=== PATIENT | female | born 1985 | race Two or more races ===

== ENCOUNTER 2017-09-21 15:25 | Emergency (ER) | payer OTHER ==
[~2017-09-21] VITALS: Ht 182.9 cm; Wt 104.3 kg
[2017-09-21] MEDS ORDERED: DIAZEPAM 10 MG TABLET PO STA (16:00)
[2017-09-21] MEDS ORDERED: KETOROLAC TROMETHAMINE INJ 60 MG/2 ML VIAL IM ONE (16:00)
--- NOTE | 2017-09-21 16:10 | NUR ---
URINE COLLECTED AND SENT TO LAB
[2017-09-21] MEDS ORDERED: KETOROLAC TROMETHAMINE INJ 30 MG/ML VIAL ONE (16:31)
[2017-09-21] MEDS ORDERED: DIAZEPAM 10 MG TABLET ONE (16:31)
--- NOTE | 2017-09-21 17:08 | NUR ---
PT STATES THAT PAIN IS NOW TOLERABLE AT 10
--- NOTE | 2017-09-21 17:09 | NUR ---
PT. VERBALIZED UNDERSTANDING OF AFTERCARE INSTRUCTIONS.Patient discharged to home in stable condition. Written and verbal after care instructions given. Patient verbalizes understanding of instruction.
[2017-09-21 17:11] VITALS: BP 134/77
== END 2017-09-21 17:12 | disposition home or self-care (01) ==
LOC: ER 15:26
DX: M54.6 Pain in thoracic spine (principal); E11.9 Type 2 diabetes mellitus without complications; Z88.0 Allergy status to penicillin; Z79.84 Long term (current) use of oral hypoglycemic drugs
CPT/HCPCS: 71010; 84703; 96372; 99283; A4606; J1885; Z7610

== ENCOUNTER 2019-01-04 19:59 | Emergency (ER) | payer OTHER ==
[~2019-01-04] VITALS: Ht 180.3 cm; Wt 136.1 kg
[~2019-01-04 19:59] MED LIST: GLYB2.5T4 PO; METF-440 PO
[2019-01-04 20:15] VITALS: BP 147/97
[2019-01-04] MEDS ORDERED: IBUPROFEN 600 MG TABLET PO ONE ×2 (21:00)
== END 2019-01-04 21:20 | disposition home or self-care (01) ==
LOC: ER 20:02
DX: M77.9 Enthesopathy, unspecified (principal); E11.9 Type 2 diabetes mellitus without complications; Z88.0 Allergy status to penicillin
CPT/HCPCS: 99282; A4606

== ENCOUNTER 2019-06-24 07:42 | Emergency (ER) | payer OTHER ==
[~2019-06-24] VITALS: Ht 175.3 cm; Wt 154.2 kg
--- NOTE | 2019-06-24 07:50 | NUR ---
PT BIB SELF C/O PALPITAIONS STARTED 3AM THIS MORNING, -CP, PT IS AAOX4, NOT IN RESPIRATORY DISTRESS, HOOKED TO MONITOR, KEPT RESTED AND COMFORTABLE, WILL CONTINUE TO MONITOR.
--- NOTE | 2019-06-24 07:55 | NUR ---
SEEN AND EXAMINED BY .
[2019-06-24] MEDS ORDERED: IV NS 0.9% 1,000 ML BAG IV ONE (08:00)
[2019-06-24] MEDS ORDERED: DILTIAZEM HCL 25 MG IV IV ONE (08:00)
--- NOTE | 2019-06-24 08:00 | NUR ---
IV LINE ESTABLISHED, BLOOD DRAWNED AND SENT TO LAB.
[2019-06-24] MEDS ORDERED: DILTIAZEM HCL 25 MG IV ONE (08:01)
[2019-06-24 08:11] LABS: BASOPHILS # (AUTO) 0.1 /CMM (0.0-0.2); BASOPHILS % (AUTO) 0.9 % (0.0-2.0); EOSINOPHILS % (AUTO) 1.6 % (0.0-6.0); HEMATOCRIT 48 % (33-45); HEMOGLOBIN 16.4 g/dL (11.5-14.8); LYMPHOCYTES # (AUTO) 2.2 /CMM (0.8-4.8); LYMPHOCYTES % (AUTO) 21.3 % (20.0-44.0); MEAN CORPUSCULAR HGB CONC 34 g/dl (31.0-36.0); MEAN CORPUSCULAR VOLUME 95 fL (82-100); MONOCYTES % (AUTO) 9.3 % (2.0-12.0); NEUTROPHILS % (AUTO) 66.9 % (43.0-81.0); PLATELET COUNT (AUTO) 236 /CMM (150-450); RED BLOOD CELL COUNT(AUTO) 5.06 MIL/uL (4.0-5.2); WHITE BLOOD COUNT (AUTO) 10.4 K/uL (4.3-11.0)
[2019-06-24] MEDS ORDERED: LIDOCAINE 1%-EPI 1:100,000 20 ML VIAL ONE (08:23)
[2019-06-24 08:25] LABS: CARBON DIOXIDE 25 mmol/L (21-32); CHLORIDE 95 mmol/L (98-107); POTASSIUM 4.4 mmol/L (3.5-5.1); SODIUM SERUM 132 mmol/L (136-145)
[2019-06-24 08:26] LABS: CALCIUM, SERUM 8.9 mg/dL (8.5-10.1); CREATININE 0.9 mg/dL (0.6-1.3); UREA NITROGEN, BLOOD 12 mg/dL (7-18)
[2019-06-24 08:27] LABS: GLUCOSE 509 mg/dL (74-106)
[2019-06-24] MEDS ORDERED: LIDOCAINE 1%-EPI 1:100,000 20 ML VIAL TP ONE (08:30)
[2019-06-24] MEDS ORDERED: INSULIN ASPART/LISPRO 100 UNIT/ML CARTRIDGE SQ STA (08:53)
[2019-06-24 10:40] VITALS: BP 118/72
--- NOTE | 2019-06-24 10:40 | NUR ---
IV removed. Catheter intact and site benign. Pressure and 4x4 applied to site. No bleeding noted. Patient discharged to home in stable condition. Written and verbal after care instructions given. Patient verbalizes understanding of instruction.
== END 2019-06-24 10:41 | disposition home or self-care (01) ==
LOC: ER 07:42
DX: I48.91 Unspecified atrial fibrillation (principal); E11.65 Type 2 diabetes mellitus with hyperglycemia; L72.3 Sebaceous cyst; F17.200 Nicotine dependence, unspecified, uncomplicated; Z88.0 Allergy status to penicillin; Z79.84 Long term (current) use of oral hypoglycemic drugs
CPT/HCPCS: 10060; 36415; 71045; 80048; 82962; 84484; 84702; 85025; 93005; 96361; 96372; 96374; 99284; A6403; A6407 ×2; J1815; J3490 ×2; J7030

== ENCOUNTER 2019-06-29 16:27 | Emergency (ER) | payer OTHER ==
[~2019-06-29] VITALS: Ht 175.3 cm; Wt 138.3 kg
[2019-06-29 16:31] VITALS: BP 187/113
== END 2019-06-29 17:16 | disposition home or self-care (01) ==
LOC: ER 16:28
DX: L02.212 Cutaneous abscess of back [any part, except buttock and flank] (principal); E11.9 Type 2 diabetes mellitus without complications; F10.10 Alcohol abuse, uncomplicated; F17.200 Nicotine dependence, unspecified, uncomplicated; Y90.9 Presence of alcohol in blood, level not specified; Z88.0 Allergy status to penicillin; Z48.01 Encounter for change or removal of surgical wound dressing

== ENCOUNTER 2019-10-04 03:38 | Emergency (ER) | payer OTHER ==
[~2019-10-04] VITALS: Ht 177.8 cm; Wt 140.6 kg
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
[2019-10-04] MEDS ORDERED: CYCLOBENZAPRINE 10 MG TABLET PO ONE (05:00)
[2019-10-04] MEDS ORDERED: KETOROLAC TROMETHAMINE INJ 60 MG/2 ML VIAL IM ONE (05:00)
[2019-10-04] MEDS ORDERED: KETOROLAC TROMETHAMINE INJ 30 MG/ML VIAL ONE (05:12)
[2019-10-04] MEDS ORDERED: CYCLOBENZAPRINE 10 MG TABLET ONE (05:13)
--- NOTE | 2019-10-04 05:20 | NUR ---
Patient discharged to home in stable condition. Written and verbal after care instructions given. Patient verbalizes understanding of instruction and RX. PT ambulatory with a steady gait.
[2019-10-04 05:21] VITALS: BP 146/86
== END 2019-10-04 05:22 | disposition home or self-care (01) ==
LOC: ER 03:40
DX: M79.18 Myalgia, other site (principal); M54.9 Dorsalgia, unspecified; E11.9 Type 2 diabetes mellitus without complications; F10.10 Alcohol abuse, uncomplicated; F17.200 Nicotine dependence, unspecified, uncomplicated; Y90.9 Presence of alcohol in blood, level not specified; Z79.899 Other long term (current) drug therapy; Z88.0 Allergy status to penicillin
CPT/HCPCS: 96372; 99283; J1885

== ENCOUNTER 2020-05-09 06:27 | Inpatient (IN) | payer MEDICAID, OTHER ==
[~2020-05-09] VITALS: Ht 177.8 cm; Wt 136.1 kg
[2020-05-09] VITALS (22 sets, daily range): BP systolic 123–177; BP diastolic 53–111
[2020-05-09] MEDS ORDERED: IV NS 0.9% 1,000 ML BAG IV ONE (07:00)
[2020-05-09] MEDS ORDERED: ONDANSETRON HCL/PF 4 MG/2 ML VIAL IVP ONE (07:00)
[2020-05-09] MEDS ORDERED: KETOROLAC TROMETHAMINE INJ 30 MG/ML VIAL IV ONE (07:00)
[2020-05-09] MEDS ORDERED: ONDANSETRON HCL/PF 4 MG/2 ML VIAL ONE ×2 (07:03→07:33)
[2020-05-09] MEDS ORDERED: KETOROLAC TROMETHAMINE 15 MG/ML VIAL ONE (07:03)
--- NOTE | 2020-05-09 07:05 | NUR ---
URINE COLLECTED AND SENT TO LAB.
--- NOTE | 2020-05-09 07:07 | NUR ---
PATIENT CAME TO ER BED 3 C/O LEFT-SIDED CHEST PAIN SINCE 0 OF YESTERDAY. SHE STATES," IT COMES FROM THE MIDDLE OF MY ABDOMEN AND UP TO THE MIDDLE OF MY CHEST". PATIENT ALSO STATES THAT SHE IS DIABETIC AND SHE TOOK IBUPROFEN OF 2 TABLETS OVER THE COUNTER AT 0000 OF TODAY. AAOX4. NO SOB. BREATHING EVENLY AND UNLABORED ON ROOM AIR. CONNECTED TO DIVER'S TENDER.
--- NOTE | 2020-05-09 07:10 | NUR ---
BLOOD DRAWN AND SENT TO THE LAB.
--- NOTE | 2020-05-09 07:12 | NUR ---
REPORT GIVENT O SCARLET SANDOVAL FOR SHARITA.
--- NOTE | 2020-05-09 07:14 | NUR ---
XRAY AT BEDSIDE
[2020-05-09] MEDS ORDERED: FAMOTIDINE/PF INJ 20 MG/2 ML VIAL IV ONE ×2 (07:17→07:30)
--- NOTE | 2020-05-09 07:26 | NUR ---
RECEIVED REPORT FROM JAIME COE FOR SHARITA, PT IS AAOX4, NOT IN RESPIRATORY DISTRESS, KEPT RESTED AND COMFORTABLE, WILL CONTINUE TO MONITOR.
[2020-05-09 07:49] LABS: BASOPHILS % (AUTO) 0.3 % (0.0-2.0); EOSINOPHILS % (AUTO) 0.2 % (0.0-6.0); HEMATOCRIT 52 % (33-45); HEMOGLOBIN 17.1 g/dL (11.5-14.8); LYMPHOCYTES # (AUTO) 1.3 /CMM (0.8-4.8); LYMPHOCYTES % (AUTO) 10.6 % (20.0-44.0); MEAN CORPUSCULAR HGB CONC 33 g/dl (31.0-36.0); MEAN CORPUSCULAR VOLUME 100 fL (82-100); MONOCYTES # (AUTO) 1.1 /CMM (0.1-1.30); MONOCYTES % (AUTO) 9.1 % (2.0-12.0); NEUTROPHILS # (AUTO) 9.4 /CMM (1.8-8.9); NEUTROPHILS % (AUTO) 79.8 % (43.0-81.0); PLATELET COUNT (AUTO) 180 /CMM (150-450); RED BLOOD CELL COUNT(AUTO) 5.17 MIL/uL (4.0-5.2); WHITE BLOOD COUNT (AUTO) 11.8 K/uL (4.3-11.0)
[2020-05-09 07:51] LABS: APPEARANCE,URINE Clear (CLEAR); BILIRUBIN,URINE SMALL (NEGATIVE); BLOOD, URINE Negative Ery/uL (NEGATIVE); COLOR,URINE Yellow (YELLOW); KETONES,URINE >=160 (NEGATIVE); LEUKOCYTE ESTERASE ,URINE Negative (NEGATIVE); NITRITE, URINE Negative (NEGATIVE); PH,URINE 5.5 (5.0-8.0); PROTEIN,URINE 30 mg/dl (NEGATIVE); UGLUCOSE 500 MG/DL mg/dL (NEGATIVE); UROBILINOGEN,URINE 0.2 EU/dL (0.2)
[2020-05-09] MEDS ORDERED: MORPHINE SULFATE INJ 2 MG/ML DISP.SYRIN IV ONE (08:00)
[2020-05-09] MEDS ORDERED: ONDANSETRON HCL/PF - ER 4 MG/2 ML VIAL IV ONE (08:00)
[2020-05-09] MEDS ORDERED: MORPHINE SULFATE INJ 4 MG/ML DISP.SYRIN ONE (08:01)
[2020-05-09 08:04] LABS: ALANINE AMINOTRANSFERASE 148 U/L (12-78); ALKALINE PHOSPHATASE 107 U/L (46-116); ASPARTATE AMINOTRANSFERASE 88 U/L (15-37); BILIRUBIN,DIRECT 0.1 mg/dL (0.0-0.2); BILIRUBIN,TOTAL 0.7 mg/dL (0.2-1.0); CALCIUM, SERUM 9.4 mg/dL (8.5-10.1); CARBON DIOXIDE 15 mmol/L (21-32); CHLORIDE 92 mmol/L (98-107); CREATININE 0.9 mg/dL (0.6-1.3); POTASSIUM 3.8 mmol/L (3.5-5.1); SODIUM SERUM 129 mmol/L (136-145); TOTAL PROTEIN, SERUM 8.2 g/dL (6.4-8.2); UREA NITROGEN, BLOOD 7 mg/dL (7-18)
--- NOTE | 2020-05-09 08:05 | NUR ---
TECH AT BEDSIDE FOR US GALLBLADDER
[2020-05-09 08:06] LABS: LIPASE 3849 U/L (73-393)
[2020-05-09 08:07] LABS: GLUCOSE 429 mg/dL (74-106)
[2020-05-09 08:08] LABS: BACTERIA,URINE Rare /HPF (None Seen); RBC,URINE 0-2 /HPF (0-2); SQUAMOUS EPITHELIAL CELL,UR Few /HPF (None Seen); WBC,URINE NONE SEEN /HPF (0-3)
[2020-05-09] MEDS ORDERED: IV PREMIX NS +20MEQ KCL 1,000 L IV PRN (08:10)
[2020-05-09] MEDS ORDERED: IV NS W/20MEQ KCL 1L IV ONE ×4 (08:30→09:00)
[2020-05-09] MEDS ORDERED: IOHEXOL-300 100 ML VIAL IV ONE (08:30)
[2020-05-09] MEDS ORDERED: INSULIN REGULAR, HUMAN 100 UNIT in IV NS 0.9% 99 ML IV PRN ×4 (08:30→09:30)
[2020-05-09] MEDS ORDERED: CT SWABBABLE VALVE TRANS SET 1 EA INFUS.SET MC ONE (08:30)
[2020-05-09] MEDS ORDERED: IV NS 0.9% 250 ML IV ONE (08:31)
[2020-05-09 08:35] LABS: PHOSPHORUS 4.7 mg/dL (2.5-4.9)
--- NOTE | 2020-05-09 09:07 | NUR ---
LEYDI SHIELDS, WAITING FOR CALL BACK.
--- NOTE | 2020-05-09 09:11 | NUR ---
MD TO MD IN PROGRESS.
--- NOTE | 2020-05-09 09:20 | NUR ---
REPORT GIVEN TO JAIME CARRIZALES FOR SHARITA, WITH ONGOING INSULIN DRIP AND NORMAL SALINE WIHT 20MEQ K.
[2020-05-09] MEDS ORDERED: IV NS 0.9% 1,000 ML IV PRN (09:21)
[2020-05-09] MEDS ORDERED: MAG HYDROX/AL HYDROX/SIMETH 30 ML UDC PO PRN (09:30)
[2020-05-09] MEDS ORDERED: ZOLPIDEM TARTRATE 5 MG TABLET PO PRN (09:30)
[2020-05-09] MEDS ORDERED: ACETAMINOPHEN 325 MG TABLET PO PRN (09:30)
[2020-05-09] MEDS ORDERED: Z GUARD REMEDY 2 OZ OINT TP PRN (09:30)
[2020-05-09] MEDS ORDERED: ONDANSETRON HCL/PF 4 MG/2 ML VIAL IVP PRN (09:30)
[2020-05-09] MEDS ORDERED: MAGNESIUM HYDROXIDE 30 ML UDC PO PRN (09:30)
[2020-05-09] MEDS ORDERED: MORPHINE SULFATE INJ 2 MG/ML DISP.SYRIN IV PRN (09:30)
[2020-05-09] MEDS: ENOXAPARIN SODIUM 40 MG/0.4 ML DISP.SYRIN SQ SCH (09:54)
[2020-05-09] MEDS: BLOOD SUGAR DIAGNOSTIC 1 EACH STRIP IN SCH ×14 (09:58→23:14)
[2020-05-09] MEDS: Potassium Chloride 20 MEQ in IV NS 0.9% 1,000 ML IV PRN ×2 (10:30→17:07)
--- NOTE | 2020-05-09 10:32 | NUR ---
RN NOTE 0945: Admitted 34y/o female patient from ED for DKA and pancreatitis. A/Ox4. Wanted to go to [facility] first, accompanied patient. With steady gait. Still noted with 8/10 abdominal pain, patient aware, she just had pain med from ED and agreed for order of Morphine 2 q4. With 2 PIVs intact. On Insulin drip at 4units/hr and NS with 20K at 200. 1000: BG 399, verified with Dr. Sheffield re: insulin drip order. Will follow algorithm 2 and continue NS with 20K at 125 and will do BMP q4.
[2020-05-09 10:35] LABS: CREATININE 0.7 mg/dL (0.6-1.3); POTASSIUM 3.9 mmol/L (3.5-5.1)
[2020-05-09 10:37] LABS: PHOSPHORUS 4.5 mg/dL (2.5-4.9)
[2020-05-09] MEDS: HYDROCODONE/APAP 5/325MG 1 EACH TABLET PO PRN ×2 (12:52→17:13)
--- NOTE | 2020-05-09 13:27 | NUR ---
RN NOTE Noted patient SBP 150-160's because of abdominal pain. Already given [id number] then [place] 5/325, BP still high. Made Dr Sheffield aware, obtained order to increase Morphine to 4mg.
--- NOTE | 2020-05-09 14:00 | NUR ---
MANAGER UTILIZATION MANAGEMENT NOTES RECEIVED PATIENT AOX4 , NO DISTRESS NOTED , DENIES SOB WITH SPO2 OF 98% VIA RA , ST 105 ON BEDSIDE MONITOR , IV OF R AC # 20 WITH NS WITH 20 MEQ KCL @ 125ML/HR , INSULIN DRIP @ 4 U/HR INFUSING WELL , L AC # 20 PATENT AND INTACT SL , COMPLAINING OF MILD ABDOMINAL PAIN 3/10 ACHING IN CHARACTERISTIC BUT TOLERABLE PER PT , WILL CONTINUE TO MONITOR
[2020-05-09 14:47] LABS: PHOSPHORUS 3.1 mg/dL (2.5-4.9)
[2020-05-09 15:21] LABS: CALCIUM, SERUM 9.1 mg/dL (8.5-10.1); CREATININE 0.8 mg/dL (0.6-1.3); POTASSIUM 4.5 mmol/L (3.5-5.1)
[2020-05-09] MEDS: MORPHINE SULFATE INJ 4 MG/ML DISP.SYRIN IV PRN ×2 (15:38→21:02)
[2020-05-09 18:36] LABS: CALCIUM, SERUM 8.7 mg/dL (8.5-10.1); CREATININE 0.7 mg/dL (0.6-1.3); POTASSIUM 4.1 mmol/L (3.5-5.1)
--- NOTE | 2020-05-09 19:15 | NUR ---
ADULT LITERACY TEACHER OPENING NOTES RECEIVED PATIENT AOX4 ON BED , NO ACUTE RESPIRATORY DISTRESS NOTED , DENIES SOB WITH SPO2 OF 98% VIA RA , ST 105 ON BEDSIDE MONITOR , IV OF R AC # 20 WITH NS WITH 20 MEQ KCL @ 125ML/HR , INSULIN DRIP @ 3 U/HR PER PROTOCOL ORDER INFUSING WELL , L AC # 20 PATENT AND INTACT SL , COMPLAINING OF MILD ABDOMINAL PAIN 1/10 ACHING IN CHARACTERISTIC BUT TOLERABLE PER PT, SAFETY MEASURE MAINTAIN BED ON LOWEST POSITION AND LOCKED CALL LIGHT WITHIN REACH WILL CONTINUE TO MONITOR
[2020-05-09] MEDS ORDERED: hydrALAZINE HCL IV 20 MG VIAL IV PRN (21:00)
[2020-05-09 22:35] LABS: CALCIUM, SERUM 8.4 mg/dL (8.5-10.1); CREATININE 0.6 mg/dL (0.6-1.3); POTASSIUM 3.8 mmol/L (3.5-5.1)
[2020-05-10] VITALS (29 sets, daily range): BP systolic 131–169; BP diastolic 41–109
[2020-05-10] MEDS: BLOOD SUGAR DIAGNOSTIC 1 EACH STRIP IN SCH ×10 (00:06→21:33)
[2020-05-10] MEDS: MORPHINE SULFATE INJ 4 MG/ML DISP.SYRIN IV PRN ×5 (01:30→19:47)
[2020-05-10] MEDS: Potassium Chloride 20 MEQ in IV NS 0.9% 1,000 ML IV PRN ×3 (01:31→23:07)
[2020-05-10] MEDS: HYDROCODONE/APAP 5/325MG 1 EACH TABLET PO PRN ×4 (02:09→21:36)
[2020-05-10 04:17] LABS: BASOPHILS % (AUTO) 0.3 % (0.0-2.0); EOSINOPHILS % (AUTO) 1.8 % (0.0-6.0); HEMATOCRIT 48 % (33-45); HEMOGLOBIN 16.2 g/dL (11.5-14.8); LYMPHOCYTES # (AUTO) 0.8 /CMM (0.8-4.8); LYMPHOCYTES % (AUTO) 7.3 % (20.0-44.0); MEAN CORPUSCULAR HGB CONC 34 g/dl (31.0-36.0); MEAN CORPUSCULAR VOLUME 99 fL (82-100); MONOCYTES # (AUTO) 0.9 /CMM (0.1-1.30); MONOCYTES % (AUTO) 8.6 % (2.0-12.0); PLATELET COUNT (AUTO) 155 /CMM (150-450); RED BLOOD CELL COUNT(AUTO) 4.88 MIL/uL (4.0-5.2); WHITE BLOOD COUNT (AUTO) 10.9 K/uL (4.3-11.0)
[2020-05-10 04:33] LABS: ALBUMIN 3.1 g/dL (3.4-5.0); BILIRUBIN,DIRECT 0.1 mg/dL (0.0-0.2); BILIRUBIN,TOTAL 0.6 mg/dL (0.2-1.0); CALCIUM, SERUM 8.5 mg/dL (8.5-10.1); CREATININE 0.7 mg/dL (0.6-1.3); PHOSPHORUS 2.5 mg/dL (2.5-4.9); POTASSIUM 4.3 mmol/L (3.5-5.1); TOTAL PROTEIN, SERUM 6.7 g/dL (6.4-8.2)
[2020-05-10 04:41] LABS: THYROID STIMULATING HORMONE 2.203 uIU/mL (0.358-3.74)
--- NOTE | 2020-05-10 04:50 | NUR ---
RN NOTES REPORTED TO DR. FARRAR ABOUT NA AG 17 AND LATEST BS OF 209, SHE MADE AN ORDER TO STOP INSULIN DRIP AND CHANGE TO MODERATE SLIDING SCALE INSULIN Q4H, CONT IVF AND RETAIN NPO EXCEPT ICE CHIPS AND MEDS STATUS OF THE PT. NOTED AND CARRIED OUT
[2020-05-10] MEDS ORDERED: DEXTROSE 50%-WATER 50 ML DISP.SYRIN IV PRN (05:00)
[2020-05-10] MEDS: INSULIN REGULAR, HUMAN 100 UNIT/ML 3 ML VIAL SQ PRN ×5 (05:25→21:35)
--- NOTE | 2020-05-10 06:45 | NUR ---
PLATE GRINDER CLOSING NOTES PT ON BED ASLEEP STILL COMPLAINING OF ABDOMINAL PAIN, PRN PAIN MEDS GIVEN ALMOST RTC, NO SIGN AND SYMPTOMS OF RESPIRATORY DISTRESS SPO2 98% VIA RA, PT STILL ON NPO EXCEPT MEDS AND ICE CHIPS, INSULIN DRIP WAS DC @ [address] ORDER AND CHANGE IT TO MODERATE SSI Q4, ALL NEEDS ATTENDED, BEDSIDE MONITOR READ SINUS TACHY 100'S, SAFETY MEASURE MAINTAINED WILL ENDORSE TO AM SHIFT NURSE
--- NOTE | 2020-05-10 07:00 | NUR ---
RN NOTES RECEIVED PT ON BED, A/Px3, ON RA, NO DISTRESS NOTED, ON TELE SR HR IN 90'S , PT IS NPO AT THIS TIME, R AC IV AND L AC IV SITES G 20 , CLEAN, DRY AND INTACT, IVF AT 125CC/HR RUNNING , SR UP x3, CALL LIGHT WITHIN EASY REACH, BED LOCKED AND IN LOWEST POSITION, CONTINUE TO MONITOR .
--- NOTE | 2020-05-10 07:37 | NUR ---
WOUND CARE CONSULT: PT PRESENTS WITH SLIGHTLY RAISED DISCOLORED AREAS OF SKIN TO UPPER ARMS AND THIGHS, PRESENT ON ADMISSION, UNKNOWN ETIOLOGY. PT STATES HAS HAD THESE SKIN DISCOLORATIONS FOR 4 DAYS. DEFER TO . RN TO DISCUSS WITH MD TODAY. WILL SEE PRN. PT IS INDEPENDENT WITH BED MOBILITY AND IS CONTINENT. CURRENT JERRY SCORE IS 20.
[2020-05-10] MEDS: PANTOPRAZOLE 40 MG VIAL IV SCH (08:24)
[2020-05-10] MEDS: ENOXAPARIN SODIUM 40 MG/0.4 ML DISP.SYRIN SQ SCH (08:29)
--- NOTE | 2020-05-10 09:00 | NUR ---
RN NOTES DR ARANZA CANTUFED REGARDING UPPER AND LOWER BODY RASHES ,
[2020-05-10] MEDS ORDERED: INSULIN GLARGINE, 100 UNIT/ML CARTRIDGE SQ ONE (09:30)
[2020-05-10] MEDS ORDERED: INSULIN GLARGINE, 100 UNIT/ML CARTRIDGE SQ SCH ×2 (09:30→22:00)
--- NOTE | 2020-05-10 10:00 | NUR ---
RN NOTES PT HAS NOT SIGN THE CONSENT FOR MRI YET, PT IS CLAUSTROPHOBIC AND STATED SHE IS STILL THINKING ABOUT IT.
[2020-05-10 12:48] LABS: CALCIUM, SERUM 8.8 mg/dL (8.5-10.1); CREATININE 0.8 mg/dL (0.6-1.3)
--- NOTE | 2020-05-10 13:15 | NUR ---
RN NOTES REPORT GIVEN TO MARVEL SANDOVAL ON FOR CONTINUITY OF CARE .
--- NOTE | 2020-05-10 13:30 | NUR ---
RN NOTE RECEIVED PT. IN BED. NO ACUTE DISTRESS NOTED, ALTHOUGH PT. REPORTED PAIN IN UPPER LEFT ABDOMEN. MORPHINE SCHEDULED FOR 1441. PT. A&OX4. PT. ON ROOM AIR, SATURATING WELL. PT. IV ACCESS R. AC INTACT, PATENT, FLUSHED WELL; L. AC INTACT, PATENT, FLUSHED WELL. PT. SAFETY MAINTAINED. CALL LIGHT WITHIN REACH. WILL CONTINUE TO MONITOR.
--- NOTE | 2020-05-10 13:30 | NUR ---
RN NOTES PT TRANSFERRED TO ROOM 320-1 , MS STATUS IN STABLE CONDITION WITH ALL HER BELONGINGS .
[2020-05-10] MEDS ORDERED: LORAZEPAM INJ 2 MG/ML VIAL IV ONE (14:00)
--- NOTE | 2020-05-10 14:46 | NUR ---
RN NOTE PT. COMPLAINS OF PAIN 9/10 IN UPPER LEFT ABDOMEN. MORPHINE ADMINISTERED ORDERED. PT. SAFETY MAINTAINED. CALL LIGHT WITHIN REACH. WILL CONTINUE TO MONITOR CLOSELY.
--- NOTE | 2020-05-10 16:01 | NUR ---
RN NOTE PT. SCHEDULED ATIVAN DOSE NON-ADMINISTERED. PT. RECEIVING ATIVAN FOR ANXIETY RELATED TO MRI. PT. REFUSED TO DO MRI DUE TO ANXIETY, REPORTED THAT ATIVAN WOULD NOT HELP AND REFUSED. Addendum: 05/10/20 at 1622 by MARVEL MERCEDES RN AMEND- NOTIFIED THAT PT. IS REFUSING THE MRI AT THIS TIME.
--- NOTE | 2020-05-10 19:09 | NUR ---
RN CLOSING NOTES PT. IN BED. NO ACUTE DISTRESS NOTED. PT. A&OX4. PT. ON ROOM AIR, SATURATING WELL. PT. IV ACCESS R. AC INTACT, PATENT, FLUSHED WELL; L. AC INTACT, PATENT, FLUSHED WELL. PT. SAFETY MAINTAINED. CALL LIGHT WITHIN REACH. WILL ENDORSE PLAN OF CARE TO ONCOMING NURSE
--- NOTE | 2020-05-10 19:15 | NUR ---
RN MS OPENING NOTES RECEIVED PATIENT IN BED AWAKE ALERT AND ORIENTED X4,RESPIRATIONS EVEN AND UNLABORED WITH EQUAL RISE AND FALL OF CHEST, IV SITE TO L AC #20G AND RIGHT AC#20 G INTACT AND PATENT, NO REDNESS, NO INFILTRATION PRESENT, STEADY GAIT, AT THIS TIME REMAINS FREE OF PAIN, ORIENTED TO STAFF AND CALL LIGHT AND KEPT WITHIN REACH, SAFETY PRECAUTIONS IN PLACE, LOW BED AND LOCKED, IVF RUNNING ORDERED, ALL NEEDS ATTENDED AT THIS TIME ,WILL CONTINUE TO MONITOR. PATIENT IS ON CLEAR LIQUID DIET AND AWARE.
--- NOTE | 2020-05-10 19:47 | NUR ---
rn ms notes patient complaint of pain to abdomen 8/10 states aching sharp pain. vs assessed wnl 131/97,100,19,95%ra, 97.9 morphine requested from patient and prn morphine given as ordered, will continue to monitor and assess pain. lights dimmed.
--- NOTE | 2020-05-10 21:37 | NUR ---
rn ms notes patient complain of pain to abd area, 6/ requested for norco for breakthrough pain. vs wnl norco prn given as ordered,will continue to monitor for effectiveness.
[2020-05-11] MEDS: MORPHINE SULFATE INJ 4 MG/ML DISP.SYRIN IV PRN ×5 (01:11→22:13)
--- NOTE | 2020-05-11 01:13 | NUR ---
rn ms notes patient complained of pain to abd area 7/10 requested for morphine. morphine prn given as ordered , vs wnl will continue to monitor.
[2020-05-11] MEDS: BLOOD SUGAR DIAGNOSTIC 1 EACH STRIP IN SCH ×6 (01:18→21:45)
[2020-05-11] MEDS: INSULIN REGULAR, HUMAN 100 UNIT/ML 3 ML VIAL SQ PRN ×6 (01:20→22:11)
[2020-05-11 03:00] VITALS: BP 136/85
[2020-05-11] MEDS: HYDROCODONE/APAP 5/325MG 1 EACH TABLET PO PRN ×4 (04:16→20:49)
--- NOTE | 2020-05-11 04:18 | NUR ---
RN MS NOTE: Patient complains of abdominal pain. Patient rates pain 9 on a 0-10 scale. She describes pain as aching and sharp. her behavior shows facial grimace, moaning, and abdominal guarding. Administered PRN Onward per order. Will continue to monitor.
--- NOTE | 2020-05-11 06:21 | NUR ---
JAIME MS CLOSING NOTES PATIENT IN BED AWAKE ALERT AND ORIENTED X4,RESPIRATIONS EVEN AND UNLABORED WITH EQUAL RISE AND FALL OF CHEST, IV SITE TO L AC #20G AND RIGHT AC#20 G INTACT AND PATENT, NO REDNESS, NO INFILTRATION PRESENT, STEADY GAIT, AT THIS TIME STATES PAIN MEDICATION IS EFFECTIVE, CALL LIGHT KEPT WITHIN REACH, SAFETY PRECAUTIONS IN PLACE, LOW BED AND LOCKED, IVF RUNNING ORDERED, ALL NEEDS ATTENDED AT THIS TIME ,WILL CONTINUE TO MONITOR. PATIENT IS ON CLEAR LIQUID DIET AND AWARE. WILL ENDORSE TO NEXT SHIFT. Addendum: 05/11/20 at 0629 by CHRISTINE CHIANG RN Disregard note. On orientation.
--- NOTE | 2020-05-11 07:30 | NUR ---
RN OPENING NOTES RECEIVED PATIENT IN BED RESTING. A/OX4. NOT IN ANY FORM OF DISTRESS. NO SOB. COMPLAINT OF ABDOMINAL PAIN, WILL ADMINISTER PAIN MEDS ORDERED. IV ACCESS INTACT AND PATENT. SAFETY MEASURES INITIATED. BED IN LOW, LOCKED POSITION, SIDERAILS UPX2, CALL LIGHT IN REACH. WILL CONT TO MONITOR ACCORDINGLY.
[2020-05-11 08:00] VITALS: BP 144/96
--- NOTE | 2020-05-11 08:00 | NUR ---
RN OPENING NOTES Patient AO x4. Laying down in bed. S1S2 heart sound. BL lung sounds clear, no SOB. Denies nausea/vomiting. Abd round and soft, no pain. Pedal pulse 2+. Tolerates diet well. Bed position low, wheels locked. Call light within reach. Side rail up. Addendum: 05/11/20 at 1239 by LUPE THOMAS RN Incorrect patient. Please disregard.
[2020-05-11] MEDS: PANTOPRAZOLE 40 MG VIAL IV SCH (08:17)
[2020-05-11 08:27] LABS: BASOPHILS % (AUTO) 0.1 % (0.0-2.0); EOSINOPHILS % (AUTO) 2.8 % (0.0-6.0); HEMATOCRIT 44 % (33-45); HEMOGLOBIN 14.6 g/dL (11.5-14.8); LYMPHOCYTES % (AUTO) 10.7 % (20.0-44.0); MEAN CORPUSCULAR HGB CONC 33 g/dl (31.0-36.0); MEAN CORPUSCULAR VOLUME 99 fL (82-100); MONOCYTES # (AUTO) 1.1 /CMM (0.1-1.30); MONOCYTES % (AUTO) 11.7 % (2.0-12.0); NEUTROPHILS # (AUTO) 7.1 /CMM (1.8-8.9); NEUTROPHILS % (AUTO) 74.7 % (43.0-81.0); PLATELET COUNT (AUTO) 134 /CMM (150-450); RED BLOOD CELL COUNT(AUTO) 4.44 MIL/uL (4.0-5.2); WHITE BLOOD COUNT (AUTO) 9.6 K/uL (4.3-11.0)
[2020-05-11] MEDS: ENOXAPARIN SODIUM 40 MG/0.4 ML DISP.SYRIN SQ SCH (08:37)
[2020-05-11 08:45] LABS: ALBUMIN 2.8 g/dL (3.4-5.0); BILIRUBIN,DIRECT 0.1 mg/dL (0.0-0.2); BILIRUBIN,TOTAL 0.8 mg/dL (0.2-1.0); TOTAL PROTEIN, SERUM 6.6 g/dL (6.4-8.2)
[2020-05-11 09:19] LABS: PHOSPHORUS 2.2 mg/dL (2.5-4.9)
[2020-05-11] MEDS ORDERED: INSULIN GLARGINE, 100 UNIT/ML CARTRIDGE SQ SCH ×2 (09:30→21:00)
--- NOTE | 2020-05-11 10:00 | NUR ---
Patient refused oral potassium. Sagrario Panda NP notified. Received potassium IVPB. Patient tolerated well. Addendum: 05/11/20 at 1242 by LUPE THOMAS RN Incorrect patient. Please disregard.
--- NOTE | 2020-05-11 10:03 | NUR ---
PATIENT WANTS TO CONSULT WITH BEFORE GETTING MRI DONE.PER NURSE.
[2020-05-11] MEDS ORDERED: MAGNESIUM HYDROXIDE 30 ML UDC PO ONE (10:30)
--- NOTE | 2020-05-11 10:30 | NUR ---
RN NOTES STILL REFUSING MRI DUE TO CLAUSTROPHOBIC. BRIANNE,STEAM TENDER IS AWARE AND GI WAS CONSULTED
[2020-05-11] MEDS ORDERED: K PHOS NEUTRAL 250 MG TABLET PO ONE (12:00)
--- NOTE | 2020-05-11 12:00 | NUR ---
Patient has been tolerating diet well. Has been advanced clear liquid diet to mechanical soft diet. Addendum: 05/11/20 at 1242 by LUPE THOMAS RN Incorrect patient. Please disregard.
[2020-05-11 13:18] LABS: CALCIUM, SERUM 8.5 mg/dL (8.5-10.1); CREATININE 0.5 mg/dL (0.6-1.3); POTASSIUM 3.6 mmol/L (3.5-5.1)
[2020-05-11 16:00] VITALS: BP 129/76
--- NOTE | 2020-05-11 19:10 | NUR ---
RN MS OPENING NOTES RECEIVED PATIENT IN BED AWAKE ALERT AND ORIENTED X4,RESPIRATIONS EVEN AND UNLABORED WITH EQUAL RISE AND FALL OF CHEST, IV SITE TO L AC #20G AND RIGHT AC#20 G INTACT AND PATENT, NO REDNESS, NO INFILTRATION PRESENT, STEADY GAIT, AT THIS TIME REMAINS COMFORTABLE, CALL LIGHT KEPT WITHIN REACH, SAFETY PRECAUTIONS IN PLACE, LOW BED AND LOCKED, AT THIS TIME PATIENT WOULD LIKE TO HAVE IVF OFF FOE BATHROOMS NEEDS, WILL FOLLOWUP AND INFUSE, ALL NEEDS ATTENDED AT THIS TIME ,WILL CONTINUE TO MONITOR. PATIENT IS ON CLEAR LIQUID DIET AND AWARE.
--- NOTE | 2020-05-11 19:28 | NUR ---
RN CLOSING NOTES PATIENT IN STABLE CONDITION. ALL NEEDS ATTENDED AND PROVIDED. ALL DUE MEDS GIVEN ORDERED. KEPT PATIENT SAFE AND COMFORTABLE. BED IN LOW/LOCKED POSITION, SIDERAILS UPX2, CALL LIGHT IN REACH. ENDORSED TO NIGHT NURSE ACCORDINGLY
[2020-05-11 20:00] VITALS: BP 119/68
--- NOTE | 2020-05-11 20:49 | NUR ---
rn ms notes patient complain of pain to abdomen area sharp achy pain, vs wnl. requested for pain medication prn norco given as ordered, lights dimmed will continue to monitor.
[2020-05-11] MEDS: INSULIN GLARGINE, 100 UNIT/ML CARTRIDGE SQ SCH (21:47)
[2020-05-11 22:00] VITALS: BP 119/68
--- NOTE | 2020-05-11 22:13 | NUR ---
rn ms notes pt complained of pain to abdomen area /10 requested for morphine, vs wnl, morphine given as ordered prn, will continue to monitor for effectiveness.
[2020-05-12] MEDS: BLOOD SUGAR DIAGNOSTIC 1 EACH STRIP IN SCH ×6 (01:57→21:05)
[2020-05-12] MEDS: INSULIN REGULAR, HUMAN 100 UNIT/ML 3 ML VIAL SQ PRN ×6 (02:15→21:09)
[2020-05-12] MEDS: HYDROCODONE/APAP 5/325MG 1 EACH TABLET PO PRN ×5 (02:20→20:50)
--- NOTE | 2020-05-12 02:20 | NUR ---
rn ms notes patient complain of pain 5/10 to abdomen area states achy, requested for norco, vs wnl, prn norco given as ordered, will continue to monitor for effectiveness lights dimmed.
[2020-05-12] MEDS: Potassium Chloride 20 MEQ in IV NS 0.9% 1,000 ML IV PRN ×2 (03:43→21:16)
[2020-05-12] MEDS: MORPHINE SULFATE INJ 4 MG/ML DISP.SYRIN IV PRN ×5 (05:36→23:58)
--- NOTE | 2020-05-12 06:24 | NUR ---
RN MS CLOSING NOTES PATIENT IN BED AWAKE ALERT AND ORIENTED X4,RESPIRATIONS EVEN AND UNLABORED WITH EQUAL RISE AND FALL OF CHEST, IV SITE TO RIGHT AC#20 G INTACT AND PATENT, NO REDNESS, NO INFILTRATION PRESENT, STEADY GAIT, AT THIS TIME REMAINS COMFORTABLE, CALL LIGHT KEPT WITHIN REACH, SAFETY PRECAUTIONS IN PLACE, LOW BED AND LOCKED, AT THIS TIME PATIENT WOULD LIKE TO HAVE IVF OFF FOR BATHROOMS NEEDS, ALL NEEDS ATTENDED AT THIS TIME ,WILL CONTINUE TO MONITOR. PATIENT IS ON CLEAR LIQUID DIET AND AWARE, WILL ENDORSE TO NEXT SHIFT.
[2020-05-12 08:00] VITALS: BP 136/97
[2020-05-12] MEDS: PANTOPRAZOLE 40 MG VIAL IV SCH (08:52)
[2020-05-12] MEDS: ENOXAPARIN SODIUM 40 MG/0.4 ML DISP.SYRIN SQ SCH (08:52)
[2020-05-12 09:52] LABS: CALCIUM, SERUM 8.4 mg/dL (8.5-10.1); CREATININE 0.5 mg/dL (0.6-1.3); POTASSIUM 3.1 mmol/L (3.5-5.1)
[2020-05-12 10:00] VITALS: BP 132/88
[2020-05-12] MEDS ORDERED: POTASSIUM CHLORIDE 20 MEQ TAB.PRT.SR PO ONE (13:00)
[2020-05-12 16:00] VITALS: BP 156/91
[2020-05-12] MEDS: DOCUSATE SODIUM 100 MG CAPSULE PO SCH (17:22)
--- NOTE | 2020-05-12 19:00 | NUR ---
M/S RN NOTES PATIENT WITH NO ACUTE DISTRES NOTED, PAIN TOLERABLE AT THIS TIME 5/10. SKIN WARM TO TOUCH, IV ACCESS SITE INTACT AND PATENT. PATIENT'S NEEDS ATTENDED, BED ON LOWEST LOCKED POSITION, CALL LIGHT WITHIN REACH. WILL ENDORSE TO ONCOMING NURSE.
--- NOTE | 2020-05-12 19:35 | NUR ---
MS RN OPENING NOTES RECEIVED PATIENT FROM MORNING SHIFT, ALERT AND ORIENTED X 4. AMBULATORY, VERBALLY RESPONSIVE AND ABLE TO FOLLOW DIRECTIONS. BREATHING REGULAR AND UNLABORED ON ROOM AIR. RIGHT AC G20 IV LINE INTACT AND PATENT, INFUSING WELL WITH NO BLEEDING OR S/S OF INFILTRATION NOTED. COMPLAINED OF 8/10 LEFT ABDOMINAL PAIN, NON-PHARMACOLOGICAL INTERVENTIONS PROVIDED. BED LOW AND LOCKED ON SEMI FOWLERS POSITION. CALL LIGHT IN REACH. WILL CONTINUE TO MONITOR.
--- NOTE | 2020-05-12 19:45 | NUR ---
MS RN NOTES COMPLAINED OF 8/10 LEFT ABDOMINAL PAIN, MORPHINE 4MG GIVEN VIA IV PUSH. NON-PHARMACOLOGICAL INTERVENTIONS PROVIDED. VITAL SIGNS WNL. WILL CONTINUE TO MONITOR.
[2020-05-12 20:00] VITALS: BP 135/90
[2020-05-12] MEDS: INSULIN GLARGINE, 100 UNIT/ML CARTRIDGE SQ SCH (21:07)
--- NOTE | 2020-05-12 21:10 | NUR ---
MS RN NOTES BS 239mg/dl, 20UNITS LANTUS AND 6UNITS REGULAR INSULIN GIVEN SQ. SITE ROTATED. SNACKS PROVIDED ON BEDSIDE. WILL CONTINUE TO MONITOR.
--- NOTE | 2020-05-12 22:00 | NUR ---
MS RN NOTES IV REINSERTED ON LEFT AC G22 DUE TO LEAKING PREVIOUS SITE. NOTED WITH GOOD BLOOD BACKFLOW, INFUSING WELL. WILL CONTINUE TO MONITOR.
[2020-05-13] MEDS: BLOOD SUGAR DIAGNOSTIC 1 EACH STRIP IN SCH ×3 (00:04→13:51)
[2020-05-13] MEDS: INSULIN REGULAR, HUMAN 100 UNIT/ML 3 ML VIAL SQ PRN ×3 (00:04→13:54)
--- NOTE | 2020-05-13 02:45 | NUR ---
purchasing administrator Notes Discussed with patient about discharge instructions, follow up with Primary Care Physician, and medication prescriptions. Patient verbally replied she will follow up and discharge instructions. Patient is stable and improved complained about pain and pain medication was given as ordered. List of belongings were verified. Able to ambulate properly no signs of distress or shortness of breath. Walked her to the [place] and got in a private car. Addendum: 05/13/20 at 1554 by FERN HUFFMAN RN Correct time for this note is 1445.
--- NOTE | 2020-05-13 07:30 | NUR ---
MS RN Opening Notes Patient is A/O x 4 awake. Ambulates with no difficulty and continent. No signs of shortness of breath. IV L AC #22G SL. Bed is in low position side rails up x 2 for safety call light is within reach. Will continue to monitor.
[2020-05-13] MEDS: HYDROCODONE/APAP 5/325MG 1 EACH TABLET PO PRN ×2 (07:39→12:12)
[2020-05-13 08:00] VITALS: BP 139/107
[2020-05-13] MEDS: PANTOPRAZOLE 40 MG VIAL IV SCH (08:20)
[2020-05-13] MEDS: DOCUSATE SODIUM 100 MG CAPSULE PO SCH (08:20)
[2020-05-13 08:54] VITALS: BP_SYST 139; BP_SYST 143; BP_DIAS 107; BP_DIAS 88
[2020-05-13] MEDS: ENOXAPARIN SODIUM 40 MG/0.4 ML DISP.SYRIN SQ SCH (09:18)
[2020-05-13] MEDS: MORPHINE SULFATE INJ 4 MG/ML DISP.SYRIN IV PRN ×2 (09:22→13:42)
[2020-05-13 11:22] LABS: CREATININE 0.6 mg/dL (0.6-1.3); POTASSIUM 3.6 mmol/L (3.5-5.1)
--- NOTE | 2020-05-13 11:29 | NUR ---
RN MS NOTES PT SEEN AND EXAMINED BY DR. VALE, DISCHARGE PLAN DISCUSSED WITH PT. VERBALIZED UNDERSTANDING.
[2020-05-13] MEDS ORDERED: ACET325T53 PO (12:06)
[2020-05-13] MEDS ORDERED: DOCU-270 PO (12:06)
[2020-05-13] MEDS ORDERED: INSU100V28 SQ (12:06)
[2020-05-13] MEDS ORDERED: Blood Sugar Diagnostic IN (12:06)
[2020-05-13] MEDS ORDERED: Insulin Glargine,Hum SQ (12:06)
== END 2020-05-13 14:50 | disposition home or self-care (01) | DRG 420 ==
LOC: ER 06:28 → ICU 08:57 → MED 05-10 13:22
PROVIDERS: ADMIT Student in an Organized Health Care Education/Training Program; ATTEND Nurse Practitioner Acute Care
DX: E11.10 Type 2 diabetes mellitus with ketoacidosis without coma (principal); K85.90 Acute pancreatitis without necrosis or infection, unspecified; K76.0 Fatty (change of) liver, not elsewhere classified; E86.1 Hypovolemia; E87.1 Hypo-osmolality and hyponatremia; Z88.0 Allergy status to penicillin; Z79.84 Long term (current) use of oral hypoglycemic drugs; D72.829 Elevated white blood cell count, unspecified; K76.89 Other specified diseases of liver; R74.0 Nonspecific elevation of levels of transaminase and lactic acid dehydrogenase [LDH]; E66.01 Morbid (severe) obesity due to excess calories; Z68.41 Body mass index [BMI] 40.0-44.9, adult
CPT/HCPCS: 36415; 71045-TC; 76705-TC; 80048-TC; 80061-TC; 80076-TC; 81000-TC; 82962-TC; 83690-TC; 83735-TC; 84100-TC; 84443-TC; 84484-TC; 84703-TC; 85025-TC; 85730-TC; 87081-TC; C9113; G0378; J0360; J1650; J1815; J1885; J2270; J2405; J3480; J3490; J7030; J7050; Q9967

== ENCOUNTER 2020-05-26 08:30 | Inpatient (IN) | payer MEDICAID ==
[2020-05-26] VITALS (14 sets, daily range): BP systolic 128–183; BP diastolic 71–114
[~2020-05-26] VITALS: Ht 180.3 cm; Wt 131.1 kg
[~2020-05-26 08:30] MED LIST changes: +ACET325T53 PO; +Blood Sugar Diagnostic IN; +DOCU-270 PO; +INSU100V28 SQ; +Insulin Glargine,Hum SQ
--- NOTE | 2020-05-26 08:30 | NUR ---
PT BIB SELF C/O SOB, CHEST PAIN AND ABDOMINAL PAIN X 2 WKS, PT IS AAOX4, NOT IN RESPIRATORY DISTRESS, HOOKED TO EVENT MANAGEMENT CONSULTANT, KEPT RESTED AND COMFORTABLE. WILL CONTINUE TO MONITOR.
--- NOTE | 2020-05-26 08:37 | NUR ---
PT SEEN AND EXAMINED BY
--- NOTE | 2020-05-26 08:40 | NUR ---
PT IV LINE ESTABLISHED BLOOD DRAWN AND SENT TO LAB.
[2020-05-26] MEDS ORDERED: METF-835 PO (08:45)
[2020-05-26 08:54] LABS: BASOPHILS # (AUTO) 0.2 /CMM (0.0-0.2); BASOPHILS % (AUTO) 1.3 % (0.0-2.0); EOSINOPHILS % (AUTO) 0.3 % (0.0-6.0); HEMATOCRIT 54 % (33-45); HEMOGLOBIN 17.4 g/dL (11.5-14.8); LYMPHOCYTES # (AUTO) 1.7 /CMM (0.8-4.8); LYMPHOCYTES % (AUTO) 12.5 % (20.0-44.0); MEAN CORPUSCULAR HGB CONC 32 g/dl (31.0-36.0); MEAN CORPUSCULAR VOLUME 102 fL (82-100); MONOCYTES % (AUTO) 7.6 % (2.0-12.0); NEUTROPHILS # (AUTO) 10.8 /CMM (1.8-8.9); NEUTROPHILS % (AUTO) 78.3 % (43.0-81.0); PLATELET COUNT (AUTO) 268 /CMM (150-450); RED BLOOD CELL COUNT(AUTO) 5.33 MIL/uL (4.0-5.2); WHITE BLOOD COUNT (AUTO) 13.8 K/uL (4.3-11.0)
[2020-05-26] MEDS ORDERED: ONDANSETRON HCL/PF 4 MG/2 ML VIAL ONE (08:57)
[2020-05-26] MEDS ORDERED: MORPHINE SULFATE INJ 4 MG/ML DISP.SYRIN ONE ×2 (08:57→10:41)
[2020-05-26] MEDS ORDERED: ACETAMINOPHEN ES 500 MG TABLET PO ONE (09:00)
[2020-05-26] MEDS ORDERED: IV NS 0.9% 1,000 ML BAG IV ONE (09:00)
[2020-05-26] MEDS ORDERED: ONDANSETRON HCL/PF 4 MG/2 ML VIAL IV ONE (09:00)
[2020-05-26] MEDS ORDERED: MORPHINE SULFATE INJ 2 MG/ML DISP.SYRIN IV ONE (09:00)
--- NOTE | 2020-05-26 09:00 | NUR ---
BANK RECONCILIATOR AT BEDSIDE FOR XRAY.
[2020-05-26 09:14] LABS: CALCIUM, SERUM 8.8 mg/dL (8.5-10.1); CHLORIDE 93 mmol/L (98-107); POTASSIUM 3.9 mmol/L (3.5-5.1); SODIUM SERUM 128 mmol/L (136-145)
[2020-05-26 09:15] LABS: ALANINE AMINOTRANSFERASE 82 U/L (12-78); ALKALINE PHOSPHATASE 161 U/L (46-116); ASPARTATE AMINOTRANSFERASE 69 U/L (15-37); BILIRUBIN,DIRECT 0.2 mg/dL (0.0-0.2); BILIRUBIN,TOTAL 0.6 mg/dL (0.2-1.0); CREATININE 1.3 mg/dL (0.6-1.3); UREA NITROGEN, BLOOD 11 mg/dL (7-18)
[2020-05-26 09:16] LABS: TOTAL PROTEIN, SERUM 8.7 g/dL (6.4-8.2)
[2020-05-26 09:18] LABS: CARBON DIOXIDE 9 mmol/L (21-32); GLUCOSE 476 mg/dL (74-106)
--- NOTE | 2020-05-26 09:21 | NUR ---
CALLED NURSING SUP FOR ICU BED.
[2020-05-26 09:23] LABS: LIPASE 226 U/L (73-393)
--- NOTE | 2020-05-26 09:25 | NUR ---
paged epic for admission
[2020-05-26] MEDS ORDERED: INSULIN REGULAR, HUMAN 100 UNIT in IV NS 0.9% 99 ML IV PRN ×2 (09:30)
--- NOTE | 2020-05-26 09:32 | NUR ---
PIV # 2 ESTABLISHED IN R AC,AMBULATED TO RESTROOM W/ STEADY GAIT
--- NOTE | 2020-05-26 09:42 | NUR ---
NURSING SUP GAVE ICU BED 254.
[2020-05-26] MEDS: IV NS 0.9% 1,000 ML IV ONE ×2 (09:50→09:59)
[2020-05-26 09:56] LABS: ABG BASE EXCESS -23.1 mmol/L; ABG OXYGEN SATURATION 97.6 % (92.0-98.5); ABG PCO2 13.8 mmHg (35.0-45.0); ABG PH 7.097 (7.350-7.450); ABG PO2 124.2 mmHg (75.0-100.0); COHb 0.2 % (0.5-1.5); MetHb 0.5 % (0.0-1.5); O2Hb 96.9 % (94.0-97.0); SITE, ABG Right Radial; VENT MODE, BG ROOM AIR
--- NOTE | 2020-05-26 10:10 | NUR ---
REPORT GIVEN TO JAIME STEVENS FOR SHARITA. WITH ONGOING IVF AND INSILIN DRIP TITRATE TO EFFECT.
--- NOTE | 2020-05-26 10:18 | NUR ---
CALLED PHARMACY FOR 1L NORMAL SALINE +40MEQ POTASSIUM.
[2020-05-26] MEDS ORDERED: Potassium Chloride 40 MEQ in IV NS 0.9% 1,000 ML IV ONE (10:30)
--- NOTE | 2020-05-26 10:47 | NUR ---
CALLED PHARMACY FOR THE 3RD TIME FOR NORMAL SALINE WITH 40MEQ POTASSIUM.
[2020-05-26] MEDS ORDERED: Potassium Chloride 40 MEQ in IV NS 0.9% 1,000 ML IV PRN (11:00)
[2020-05-26] MEDS ORDERED: IV NS 0.9% 1,000 ML IV PRN ×4 (11:00→22:00)
[2020-05-26] MEDS ORDERED: Z GUARD REMEDY 2 OZ OINT TP PRN (11:00)
[2020-05-26] MEDS ORDERED: ACETAMINOPHEN 325 MG TABLET PO PRN (11:00)
[2020-05-26] MEDS ORDERED: MORPHINE SULFATE INJ 4 MG/ML DISP.SYRIN IV PRN (11:00)
--- NOTE | 2020-05-26 11:00 | NUR ---
ICU/RN: RECEIVED PT FROM ER. REPORT RECEIVED BY VERONICA SANDOVAL. PT TRANSFERRED TO ROOM 251. ALERT, AWAKE, FOLLOWING COMMANDS. SINUS TACH ON TELE, ON ROOM AIR, NO ACUTE RESP DISTRESS NOTED. PT ON INSULIN DRIP. PT AMBULATORY. FLUIDS INFUSING ORDERED. WILL CONTINUE TO MONITOR AND ASSESS.
[2020-05-26] MEDS: ENOXAPARIN SODIUM 40 MG/0.4 ML DISP.SYRIN SQ SCH (11:52)
[2020-05-26] MEDS: BLOOD SUGAR DIAGNOSTIC 1 EACH STRIP IN SCH ×12 (12:21→23:46)
[2020-05-26] MEDS: INSULIN REGULAR, HUMAN 100 UNIT in IV NS 0.9% 99 ML IV PRN ×2 (12:23)
[2020-05-26] MEDS: MORPHINE SULFATE INJ 2 MG/ML DISP.SYRIN IV PRN ×3 (12:50→21:14)
[2020-05-26 13:11] LABS: CALCIUM, SERUM 8.7 mg/dL (8.5-10.1); CREATININE 1.1 mg/dL (0.6-1.3); MAGNESIUM 2.3 mg/dL (1.8-2.4); PHOSPHORUS 2.7 mg/dL (2.5-4.9)
[2020-05-26] MEDS: IV NS 0.9% 1,000 ML IV PRN ×2 (13:46→15:52)
--- NOTE | 2020-05-26 18:00 | NUR ---
ICU/RN: PER DR.TIM DAVID. CHANGED FACTOR TO 2. NEW FORMULA TO FOLLOW BSX2/100. WILL FOLLOW. [facility]
[2020-05-26] MEDS ORDERED: Sodium Chloride 154 MEQ in IV 10% DEXTROSE 1,000 ML IV PRN ×2 (18:30→19:30)
--- NOTE | 2020-05-26 19:15 | NUR ---
ICU/RN RECEIVED PATIENT IN BED A/O X4 UKRAINIAN SPEAKER. COMPLAINS OF GENERALIZED PAIN AND A HEADACHE OUR OF 8 OUT 10. PATIENT IS ON ROOM AIR WITH NO RESPIRATORY DISTRESS OR ANY COMPLAINT OF SOB. PICC LINE IS BEING INSERTED AT BEDSIDE. PATIENT IS ON INSULIN DRIP WITHIN THE PARAMETERS, NS KCL 40MEQ AT 75CC/HR. PATIENT IS ABLE TO AMBULATE WITH COMMODE AT BEDSIDE WITH NEEDED MINIMAL ASSISTANCE. ALL SAFETY PRECAUTIONS WILL CONTINUE TO MONITOR PATIENT.
[2020-05-26] MEDS: hydrALAZINE HCL IV 20 MG VIAL IV PRN (19:21)
--- NOTE | 2020-05-26 19:39 | NUR ---
ICU/RN: ENDING NOTES,AM REPORT ENDORSED TO NIGHT NURSE. PICC RN AT BEDSIDE PLACING PICC, CONSENT IN CHART. PT WILL BE ON NS WITH 40KCL AT 40ML/HR AND D10W AT 75ML/HR. ON HOURLY ACCU CHECKS. ALL NEEDS ATTENDED TO. SAFETY MEASURES TAKEN.
[2020-05-26] MEDS: IV NS W/40MEQ KCL 1L IV PRN ×2 (19:45)
[2020-05-26 20:17] LABS: CALCIUM, SERUM 7.9 mg/dL (8.5-10.1); CREATININE 0.9 mg/dL (0.6-1.3); PHOSPHORUS 1.7 mg/dL (2.5-4.9); POTASSIUM 4.6 mmol/L (3.5-5.1)
[2020-05-26] MEDS: IV 10% DEXTROSE 1,000 ML IV PRN (20:19)
--- NOTE | 2020-05-26 21:00 | NUR ---
CALLED LAB BMP RESULTS STILL STILL SHOWING PENDING. SAID THEY RELEASED IT A WHILE AGO. THEY WILL LOOK INTO IT. WILL F/U
[2020-05-26 21:16] LABS: POTASSIUM 4.6 mmol/L (3.5-5.1)
[2020-05-26 21:17] LABS: CALCIUM, SERUM 7.9 mg/dL (8.5-10.1); CREATININE 0.9 mg/dL (0.6-1.3)
[2020-05-26 21:18] LABS: PHOSPHORUS 1.7 mg/dL (2.5-4.9)
[2020-05-26] MEDS ORDERED: IV NS 0.9% 1,000 ML IV ONE (22:00)
--- NOTE | 2020-05-26 22:20 | NUR ---
ORDERS FROM JOANN CRUZ TO CHANGE FORMULA OF INSULIN DRIP TO BSX2.5/100. ORDERED REPEATED AND AND CONFIRMED WILL MONITOR.
[2020-05-26 22:55] LABS: CALCIUM, SERUM 7.5 mg/dL (8.5-10.1); CREATININE 0.8 mg/dL (0.6-1.3); MAGNESIUM 1.9 mg/dL (1.8-2.4); PHOSPHORUS 1.5 mg/dL (2.5-4.9); POTASSIUM 3.1 mmol/L (3.5-5.1)
[2020-05-27] VITALS (27 sets, daily range): BP systolic 107–180; BP diastolic 41–91
[2020-05-27] MEDS: BLOOD SUGAR DIAGNOSTIC 1 EACH STRIP IN SCH ×24 (00:07→23:23)
--- NOTE | 2020-05-27 00:37 | NUR ---
PAGED SEUN ABOUT PATIENTS CRITICAL LAB OF POTASSIUM OF 3.1. I LET SEUN KNOW THAT NS WITH 40 MEQ KCL AT 75CC/HR WAS STARTED AT 2300. HE WILL WAIT TILL 0300 BMP BLOOD DRAW TO SEE IF THERE ARE ANY CHANGES. PATIENT IS SINUS TACHY WITH NO ABNORMAL RHYTHMS. WILL MONITOR.
[2020-05-27] MEDS: MORPHINE SULFATE INJ 2 MG/ML DISP.SYRIN IV PRN ×7 (01:28→23:23)
[2020-05-27] MEDS: hydrALAZINE HCL IV 20 MG VIAL IV PRN (01:29)
[2020-05-27] MEDS: ONDANSETRON HCL/PF 4 MG/2 ML VIAL IVP PRN ×4 (01:30→23:24)
[2020-05-27] MEDS: POTASSIUM CL. PREMIX PERIPHER. 50 ML IV SCH ×12 (02:21→20:08)
[2020-05-27] MEDS ORDERED: IV NS 0.9% 250 ML IV ONE (02:30)
[2020-05-27 03:04] LABS: BASOPHILS # (AUTO) 0.1 /CMM (0.0-0.2); BASOPHILS % (AUTO) 0.9 % (0.0-2.0); HEMATOCRIT 43 % (33-45); HEMOGLOBIN 14.2 g/dL (11.5-14.8); LYMPHOCYTES # (AUTO) 1.4 /CMM (0.8-4.8); LYMPHOCYTES % (AUTO) 13.4 % (20.0-44.0); MEAN CORPUSCULAR HGB CONC 33 g/dl (31.0-36.0); MEAN CORPUSCULAR VOLUME 97 fL (82-100); MONOCYTES # (AUTO) 0.9 /CMM (0.1-1.30); MONOCYTES % (AUTO) 8.9 % (2.0-12.0); NEUTROPHILS # (AUTO) 7.7 /CMM (1.8-8.9); NEUTROPHILS % (AUTO) 75.8 % (43.0-81.0); PLATELET COUNT (AUTO) 190 /CMM (150-450); RED BLOOD CELL COUNT(AUTO) 4.42 MIL/uL (4.0-5.2); WHITE BLOOD COUNT (AUTO) 10.2 K/uL (4.3-11.0)
[2020-05-27 03:16] LABS: CALCIUM, SERUM 7.9 mg/dL (8.5-10.1); CREATININE 0.9 mg/dL (0.6-1.3); MAGNESIUM 1.9 mg/dL (1.8-2.4); PHOSPHORUS 1.2 mg/dL (2.5-4.9); POTASSIUM 2.9 mmol/L (3.5-5.1)
[2020-05-27 03:27] LABS: THYROID STIMULATING HORMONE 1.17 uIU/mL (0.358-3.74)
[2020-05-27 06:55] LABS: ALBUMIN 2.9 g/dL (3.4-5.0); BILIRUBIN,TOTAL 0.5 mg/dL (0.2-1.0); CALCIUM, SERUM 8.3 mg/dL (8.5-10.1); CREATININE 0.8 mg/dL (0.6-1.3); PHOSPHORUS 1.2 mg/dL (2.5-4.9); POTASSIUM 2.9 mmol/L (3.5-5.1); TOTAL PROTEIN, SERUM 6.7 g/dL (6.4-8.2)
--- NOTE | 2020-05-27 07:00 | NUR ---
ICU/RN RECEIVED PATIENT ON BED A/O X4, ON RA, RESPIRATION EVEN AND UNLABORED, ON TELE HR IN 80'S , PT IS ON INSULIN GTT AT 6.4 U/HR, NPO AT THIS TIME, R UPPER ARM PICC LINE SITE CLEAN, DRY AND INTACT, D10 AT 125CC/HR RUNNING , SR UP x3, CALL LIGHT WITHIN EASY REACH, BED LOCKED AND IN LOWEST POSITION, CONTINUE TO MONITOR .
[2020-05-27] MEDS: IV 10% DEXTROSE 1,000 ML IV PRN ×3 (07:18→21:45)
[2020-05-27] MEDS: INSULIN REGULAR, HUMAN 100 UNIT in IV NS 0.9% 99 ML IV PRN ×2 (07:41)
--- NOTE | 2020-05-27 08:00 | NUR ---
RN NOTES PT REFUSED DVT PUMP .
[2020-05-27] MEDS ORDERED: POTASSIUM CL. PREMIX PERIPHER. 50 ML IV SCH (09:30)
[2020-05-27] MEDS ORDERED: POTASSIUM PHOSPHATE MM 15 MMOL in IV NS 0.9% 250 ML IV SCH (10:00)
[2020-05-27] MEDS: ENOXAPARIN SODIUM 40 MG/0.4 ML DISP.SYRIN SQ SCH (10:39)
[2020-05-27 11:25] LABS: CALCIUM, SERUM 8.2 mg/dL (8.5-10.1); CREATININE 0.8 mg/dL (0.6-1.3); MAGNESIUM 1.9 mg/dL (1.8-2.4); PHOSPHORUS 1.1 mg/dL (2.5-4.9); POTASSIUM 2.9 mmol/L (3.5-5.1)
--- NOTE | 2020-05-27 11:57 | NUR ---
RN NOTES DR JOANN BEE REGARDING BMP RESULTS , NEW ORDER RECEIVED
[2020-05-27 14:33] LABS: CALCIUM, SERUM 8.5 mg/dL (8.5-10.1); CREATININE 0.8 mg/dL (0.6-1.3); MAGNESIUM 2.1 mg/dL (1.8-2.4); PHOSPHORUS 1.8 mg/dL (2.5-4.9); POTASSIUM 2.9 mmol/L (3.5-5.1)
--- NOTE | 2020-05-27 15:40 | NUR ---
RN NOTES DR DAVID NOTIFED REGARDING BMP RESULTS NEW ORDER RECEIVED .
[2020-05-27 16:49] LABS: CALCIUM, SERUM 8.3 mg/dL (8.5-10.1); CREATININE 0.7 mg/dL (0.6-1.3); MAGNESIUM 1.9 mg/dL (1.8-2.4); PHOSPHORUS 1.4 mg/dL (2.5-4.9); POTASSIUM 2.8 mmol/L (3.5-5.1)
--- NOTE | 2020-05-27 17:00 | NUR ---
RN NOTES DR JOANN CANTUFED REGARDING 15:30 PM BMP, AND K =2.8 NEW ORDER RECEIVED
--- NOTE | 2020-05-27 18:28 | NUR ---
RN NOTES PT STABLE, ON INSULIN GTT AND Q1HR ACCU CHECKS, ON TELE SR , NPO, D10 AT 150CC/HR RUNNING , PT RECEIVING KCL IV PER DR DAVID ORDER , R UPPER ARM PICC LINE SITE CLEAN, DRY AND INTACT, PT IS OUT OF BED TO BEDSIDE COMMODE, , NO DISTRESS NOTED , WILL ENDORS TO HVAC SERVICE TECHNICIAN NURSE FOR CONTINUITY OF CARE.
[2020-05-27] MEDS: POTASSIUM PHOSPHATE MM 7.5 MMOL in IV NS 0.9% 100 ML IV SCH ×2 (18:32→21:35)
--- NOTE | 2020-05-27 19:32 | NUR ---
ICU/RN RECEIVED PATIENT A/O X4 AMERICAN SPEAKER. NOT SHOWING ANY SIGNS OF ANY DISTRESS. PATIENT IS ON ROOM AIR WITH NO RESPIRATORY DISTRESS. PATIENT ON MONITOR SHOWING SR WITH 83 HR AT BEDSIDE MONITOR. VÍCTOR PICC LINE WITH INSULIN DRIP, D10% AT 150CC, K PHOS. RUNNING WITHIN PARAMETERS. LAC #18 INFUSING KCL. BEDSIDE COMMODE WITHIN REACH. ALL SAFETY PRECAUTIONS APPLIED. WILL CONTINUE TO MONITOR.
[2020-05-27 19:51] LABS: CALCIUM, SERUM 8.3 mg/dL (8.5-10.1); CREATININE 0.8 mg/dL (0.6-1.3); MAGNESIUM 1.9 mg/dL (1.8-2.4); PHOSPHORUS 1.6 mg/dL (2.5-4.9)
--- NOTE | 2020-05-27 21:53 | NUR ---
DAUGHTER OF PATIENT CALLED TO F/U IF PATIENT HAS HAD PROCEDURE FOR PERMANENT TRACHEOSTOMY. ANSWERED EVAN QUESTIONS AND CONCERNS.
[2020-05-27 22:57] LABS: CREATININE 0.7 mg/dL (0.6-1.3); MAGNESIUM 1.6 mg/dL (1.8-2.4); POTASSIUM 3.2 mmol/L (3.5-5.1)
[2020-05-28] VITALS (22 sets, daily range): BP systolic 83–139; BP diastolic 50–92
[2020-05-28] MEDS: INSULIN REGULAR, HUMAN 100 UNIT in IV NS 0.9% 99 ML IV PRN ×2 (00:07)
[2020-05-28] MEDS: BLOOD SUGAR DIAGNOSTIC 1 EACH STRIP IN SCH ×14 (00:13→21:08)
[2020-05-28 01:59] LABS: CALCIUM, SERUM 8.1 mg/dL (8.5-10.1); CREATININE 0.7 mg/dL (0.6-1.3); MAGNESIUM 1.6 mg/dL (1.8-2.4); PHOSPHORUS 1.9 mg/dL (2.5-4.9); POTASSIUM 2.9 mmol/L (3.5-5.1)
[2020-05-28] MEDS: MORPHINE SULFATE INJ 2 MG/ML DISP.SYRIN IV PRN ×3 (03:26→09:29)
[2020-05-28 05:20] LABS: CALCIUM, SERUM 8.6 mg/dL (8.5-10.1); CREATININE 0.8 mg/dL (0.6-1.3); MAGNESIUM 1.7 mg/dL (1.8-2.4); PHOSPHORUS 1.9 mg/dL (2.5-4.9); POTASSIUM 3.4 mmol/L (3.5-5.1)
[2020-05-28] MEDS: IV 10% DEXTROSE 1,000 ML IV PRN (05:26)
[2020-05-28] MEDS: ONDANSETRON HCL/PF 4 MG/2 ML VIAL IVP PRN ×2 (06:19→11:55)
[2020-05-28] MEDS: IV NS W/40MEQ KCL 1L IV PRN ×2 (06:42)
[2020-05-28] MEDS ORDERED: IV NS 0.9% 250 ML IV ONE (07:00)
--- NOTE | 2020-05-28 07:37 | NUR ---
RN OPENING NOTES RECEIVED PATIENT RESTING IN BED COMFORTABLY AWAKE. PT IS AOX4, VERBAL, AND AMBULATORY. SHE IS ON RA, TOLERATING WELL, NO SOB OR RESP DISTRESS. TELE MONITOR SHOWING SR. SKIN IS INTACT. PT IS CURRENTLY NPO. IV SITE ON VÍCTOR MIDLINE AND R AC 18 G IS PATENT AND INTACT, PICC INFUSING INSULIN DRIP AT 7.1 UNITS PER HOUR, D10 AT 150 ML.HR, AND NS KCL 40 MeQ AT 75 ML/HR. SAFETY MEASURES HAVE BEEN IMPLEMENTED, CALL LIGHT IS WITHIN REACH, BED IS IN LOWEST AND LOCKED POSITION, SIDE RIALS UP X2, WILL CONTINUE TO MONITOR FOR ANY CHANGES.
--- NOTE | 2020-05-28 08:10 | NUR ---
RN NOTES PT IS REPORTING PAIN OF 8/10 IN STOMACH AND GENERALIZED. PT IS REQUESTING MORPHINE BUT PRN DOSE IS NOT DUE YET, OFFERED PT TYLENOL AND CHANGE OF POSITION TO ALLEVIATE PAIN BUT PT REFUSED. WILL CONTINUE TO MONITOR
[2020-05-28] MEDS ORDERED: POTASSIUM PHOSPHATE MM 7.5 MMOL in IV NS 0.9% 100 ML IV SCH (09:00)
[2020-05-28] MEDS: Magnesium 1GM/D5W 100ML PREMIX 100 ML IV SCH ×2 (09:24→10:25)
[2020-05-28] MEDS ORDERED: DEXTROSE 50%-WATER 50 ML DISP.SYRIN IV PRN (10:00)
--- NOTE | 2020-05-28 10:00 | NUR ---
RN NOTES SPOKE WITH NANCY DAVID OVER PHONE, RECEIVED ORDERS TO DC INSULIN DRIP, DC D10W, ADMIN ONE TIME DOSE OF 20 UNITS LANTUS, ADMIN 5 UNITS OF HUMILIN AC TID, DC MORPHINE IV, AND PERCOCET 10 MG, AND TO ADVANCE DIET, WILL CONTINUE TO MONITOR FOR CHANGES.
[2020-05-28] MEDS ORDERED: INSULIN GLARGINE, 100 UNIT/ML CARTRIDGE SQ ONE (10:30)
[2020-05-28] MEDS: ENOXAPARIN SODIUM 40 MG/0.4 ML DISP.SYRIN SQ SCH (10:30)
[2020-05-28] MEDS: INSULIN LISPRO/ASPART 100 UNIT/ML CARTRIDGE SQ PRN (12:13)
[2020-05-28] MEDS: oxyCODONE/APAP (5/325 MG) 1 UDTAB TABLET PO PRN ×3 (13:07→21:37)
[2020-05-28] MEDS: METOCLOPRAMIDE HCL 10 MG/2 ML VIAL IV SCH ×2 (13:07→18:12)
[2020-05-28] MEDS: INSULIN REGULAR, HUMAN 100 UNIT/ML 3 ML VIAL SQ PRN ×3 (13:21→21:12)
[2020-05-28 16:40] LABS: CALCIUM, SERUM 8.3 mg/dL (8.5-10.1); CREATININE 0.7 mg/dL (0.6-1.3); PHOSPHORUS 6.5 mg/dL (2.5-4.9); POTASSIUM 5.1 mmol/L (3.5-5.1)
[2020-05-28] MEDS ORDERED: LACTULOSE 10 G/15 ML UDC (PYXIS) PO ONE (17:30)
[2020-05-28] MEDS ORDERED: SENNOSIDES/DOCUSATE SODIUM 1 TAB TABLET PO PRN (17:30)
[2020-05-28] MEDS ORDERED: MAGNESIUM CITRATE 296 ML BOTTLE PO ONE (17:30)
--- NOTE | 2020-05-28 18:40 | NUR ---
RN NOTES PT HAS BEEN TRANSFERRED TO ROOM 201, TRANSFER REPORT GIVEN TO IMANI SANDOVAL FOR SHARITA
--- NOTE | 2020-05-28 18:43 | NUR ---
MS RN NOTES RECEIVED PT FROM ICU VIA WHEELCHAIR AT 1830, VS TAKEN AND RECORDED. PT AWAKE, A/OX4, AMBULATORY. PT TOLERATING RA, WITH NO ACUTE RESPIRATORY DISTRESS NOTED. PT DENIES ANY PAIN OR DISCOMFORT AT THIS TIME. VÍCTOR TRIPLE LUMEN PICC LINE PRESENT AND RAC G18 SL, BOTH FLUSHED WITH NS, INTACT AND OPERATIONAL. PT ORIENTED TO STAFF, ROOM, MEAL TIMES, ETC. PT KEPT COMFORTABLE. CALL LIGHT KEPT WITHIN REACH. CALL LIGHT KEPT WITHIN REACH. PT'S BED IN LOWEST, LOCKED POSITION WITH SR X3. WILL ENDORSE TO INCOMING NIGHT NURSE FOR SHARITA.
--- NOTE | 2020-05-28 19:05 | NUR ---
RN NOTES: RECEIVED AWAKE IN BED, A/OX4, ORIENTATED TO UNIT AND STAFF, IV CANNULA ON THE RAC G#18 AND VÍCTOR PICC LINE WITH TRIPLE LUMEN BOTH ARE INTACT AND PATENT, TRANS IN FROM ICU AT AROUND 1830, NO SIGN OF PAIN OR DISCOMFORT, SHE IS CONVERSANT AND ABLE TO MAKE NEEDS KNOWN,FALL, SAFETY AND ASPIRATION PRECAUTION OBSERVED, BED LOW AND LOCKED, CALL LIGHT KEPT WITHIN EASY REACH.
--- NOTE | 2020-05-28 21:49 | NUR ---
RN NOTES: -AT 2100 BLOOD SUGAR CHECKED-302, INSULIN GIVEN PER SCALE, WILL CONTINUE TO MONITOR FOR SIGN OF HYPER/HYPOGLYCEMIA -AT 2136 COMPLAINED OF PAIN AGAIN OF 08/28, GENRALIZED, HE REQUEST FOR HER PAIN MEDICATION, NON PHARMACOLOGIC INTERVENTION GIVEN,WARM BLANKET, DIM LIT AND SOFT MUSIC.KEPT CALL LIGHT WITHIN EASY REACH.
--- NOTE | 2020-05-28 23:05 | NUR ---
RN NOTES: -SHE ASKED FOR SOME SNACK,GIVEN JUICE, CRACKERS AND UNSWEETENED APPLE SAUCE.ON CLOSE WATCH.SHE VERBALIZED HER PAIN SUBSIDES.
[2020-05-29] MEDS: METOCLOPRAMIDE HCL 10 MG/2 ML VIAL IV SCH ×3 (01:06→12:16)
[2020-05-29] MEDS: BLOOD SUGAR DIAGNOSTIC 1 EACH STRIP IN SCH ×4 (01:12→12:16)
[2020-05-29] MEDS: INSULIN REGULAR, HUMAN 100 UNIT/ML 3 ML VIAL SQ PRN ×4 (01:13→12:20)
--- NOTE | 2020-05-29 01:34 | NUR ---
RN NOTES: BLOOD SUGAR CHECKED-269, INSULIN GIVEN PER SCALE, CONTINUE TO BE MONITORED FOR ANY SIGN OF HYPO/HYPERGLYCEMIA.
[2020-05-29] MEDS: oxyCODONE/APAP (5/325 MG) 1 UDTAB TABLET PO PRN ×3 (01:41→10:43)
--- NOTE | 2020-05-29 01:44 | NUR ---
RN NOTES: AWAKE SHE WENT TO THE BATHROOM TO PEE, DRINKING WELL, WHEN SHE CAME BACK TO BED SHE COMPLAINED OF SEVERE GENERALIZED PAIN AND REQUEST FOR HER PAIN MEDICATION,NON PHARMACOLOGIC INTERVENTION RENDERED. KEPT ROOM COOL AND DIM LIT, CALL LIGHT KEPT WITHIN EASY REACH.
--- NOTE | 2020-05-29 05:36 | NUR ---
RN NOTES: BLOOD SUGAR CHECKED-231,INSULIN GIVEN PER SCALE.
--- NOTE | 2020-05-29 06:14 | NUR ---
RN NOTES: SHE HAD A TOTAL OF 5X URINE IN MANAGER LIBRARY ADEQUATE WATER INTAKE, STILL WITH INTERMITTENT PAIN 04/28, PRN MEDICATION GIVEN PER PATIENT REQUEST,KEPT ON CLOSE WATCH, NEEDS ATTENDED, NO SIGN OF RESPIRATORY DISTRESS, NO SIGN OF HYPOGLYCEMIA, BLOOD TEST DONE TO F/U RESULT.FOR RD F/U ON 05/31/20, FOR POSSIBLE DISCHARGE.FALL AND SAFETY PRECAUTION OBSERVED, BED LOW AND LOCKED, CALL LIGHT KEPT WITHIN EASY REACH, ENDORSED FOR CONTINUITY OF CARE.
[2020-05-29 06:45] LABS: BASOPHILS % (AUTO) 0.9 % (0.0-2.0); EOSINOPHILS % (AUTO) 3.8 % (0.0-6.0); HEMATOCRIT 42 % (33-45); HEMOGLOBIN 13.9 g/dL (11.5-14.8); LYMPHOCYTES # (AUTO) 1.5 /CMM (0.8-4.8); MEAN CORPUSCULAR HGB CONC 33 g/dl (31.0-36.0); MEAN CORPUSCULAR VOLUME 97 fL (82-100); MONOCYTES # (AUTO) 0.7 /CMM (0.1-1.30); MONOCYTES % (AUTO) 12.6 % (2.0-12.0); NEUTROPHILS # (AUTO) 2.9 /CMM (1.8-8.9); NEUTROPHILS % (AUTO) 54.7 % (43.0-81.0); PLATELET COUNT (AUTO) 195 /CMM (150-450); RED BLOOD CELL COUNT(AUTO) 4.31 MIL/uL (4.0-5.2); WHITE BLOOD COUNT (AUTO) 5.3 K/uL (4.3-11.0)
[2020-05-29 06:57] LABS: ALBUMIN 3.1 g/dL (3.4-5.0); BILIRUBIN,TOTAL 0.7 mg/dL (0.2-1.0); CALCIUM, SERUM 8.9 mg/dL (8.5-10.1); CREATININE 0.6 mg/dL (0.6-1.3); MAGNESIUM 2.3 mg/dL (1.8-2.4); PHOSPHORUS 3.1 mg/dL (2.5-4.9); POTASSIUM 2.9 mmol/L (3.5-5.1); TOTAL PROTEIN, SERUM 7.1 g/dL (6.4-8.2)
--- NOTE | 2020-05-29 07:20 | NUR ---
MS RN OPENING NOTE PATIENT IN BED RESTING COMFORTABLY. PATIENT IN NO ACUTE DISTRESS. NO SOB NOTED. PATIENT BREATHING IS EVEN AND UNLABORED. PATIENT IS ALERT AND ORIENTEDX4 AND RESPONSIVE TO VERBAL STIMULI. PATIENT BED ALARM IS ON. SAFETY PRECAUTIONS IN PLACE. PATIENT BED IS LOCKED AND IN LOWEST POSITION. CALL LIGHT WITHIN REACH. WILL CONTINUE TO MONITOR.
[2020-05-29 08:00] VITALS: BP 107/64
[2020-05-29] MEDS ORDERED: POTASSIUM CHLORIDE 20 MEQ TAB.PRT.SR PO ONE (09:30)
[2020-05-29 10:00] VITALS: BP 116/61
[2020-05-29] MEDS: ENOXAPARIN SODIUM 40 MG/0.4 ML DISP.SYRIN SQ SCH (10:42)
[2020-05-29] MEDS: ONDANSETRON HCL/PF 4 MG/2 ML VIAL IVP PRN (10:43)
[2020-05-29] MEDS: INSULIN LISPRO/ASPART 100 UNIT/ML CARTRIDGE SQ PRN (12:21)
--- NOTE | 2020-05-29 12:21 | NUR ---
MS RN NOTE PATIENT REFUSING 5 UNITS HUMALOG TO BE GIVEN BEFORE MEALS. EDUCATED RISKS VS BENEFITS. PATIENT ONLY WANTS THE 12 UNITS REGULAR INSULIN DUE TO BLOOD SUGAR AT 258. PATIENT STATES NOT EATING MUCH DUE TO NAUSEA APPEARING PERIODICALLY THROUGHOUT THE DAY.
[2020-05-29] MEDS ORDERED: OXYC-128 PO (13:00)
[2020-05-29] MEDS ORDERED: BLOO1EAC70 MC (13:00)
[2020-05-29] MEDS ORDERED: INSU100C10 SQ (13:00)
[2020-05-29] MEDS ORDERED: ASPI-1152 PO (13:00)
[2020-05-29] MEDS ORDERED: [UNRECOGNIZED DRUG - CODE] MC (13:00)
[2020-05-29] MEDS ORDERED: LISI-603 PO (13:00)
[2020-05-29] MEDS ORDERED: INSU100V7 SQ (13:00)
[2020-05-29] MEDS ORDERED: ATOR20TA PO (13:05)
--- NOTE | 2020-05-29 13:55 | NUR ---
MS NON DESTRUCTIVE TESTING TECHNICIAN NOTE PATIENT MEDICALLY CLEARED FOR DISCHARGE. PATIENT IN NO ACUTE DISTRESS. NO SOB NOTED. PATIENT BREATHING IS EVEN AND UNLABORED. DC INSTRUCTIONS PROVIDED, PATIENT VERBALIZED UNDERSTANDING. EDUCATED ON INSULIN ADMINISTRATION AND PRESCRIPTIONS. PATIENT VERBALIZED UNDERSTANDING. NANCY JOANN FOLLOWED UP AND TALKED TO PATIENT AT BEDSIDE WELL FOR DISCHARGE INSTRUCTIONS. PATIENT HAS BELONGINGS WITH HER AND SIGNED BELONGINGS LIST. PATIENT IV LINES REMOVED, WITH NO BLEEDING NOTED. PATIENT ID BAND REMOVED. PATIENT SKIN ASSESSED, NO NEW SKIN BREAKDOWN NOTED. PATIENT KEPT CLEAN, DRY, AND COMFORTABLE THROUGHOUT SHIFT. NEEDS AND CONCERNS ADDRESSED. PATIENT AMBULATORY WITH STEADY GAIT GOING BY UBER BACK HOME. MD AWARE OF DISCHARGE.
[2020-05-29 16:00] VITALS: BP 134/84
[2020-05-29] MEDS ORDERED: INSULIN GLARGINE, 100 UNIT/ML CARTRIDGE SQ SCH (22:00)
== END 2020-05-29 15:55 | disposition home or self-care (01) | DRG 420 ==
LOC: ER 08:30 → ICU 09:50 → TELE-TD 05-28 18:32 → MEDSG2 05-28 18:39
PROVIDERS: ADMIT Nurse Practitioner Acute Care; ATTEND Nurse Practitioner Acute Care
PROC: B548ZZA Ultrasonography of Superior Vena Cava, Guidance (ICD-10-PCS; principal; 2020-05-26)
PROC: 02HV33Z Insertion of Infusion Device into Superior Vena Cava, Percutaneous Approach (ICD-10-PCS; principal; 2020-05-26)
DX: E11.10 Type 2 diabetes mellitus with ketoacidosis without coma (principal); K85.90 Acute pancreatitis without necrosis or infection, unspecified; D68.59 Other primary thrombophilia; I48.0 Paroxysmal atrial fibrillation; E87.1 Hypo-osmolality and hyponatremia; F17.200 Nicotine dependence, unspecified, uncomplicated; Z88.0 Allergy status to penicillin; Z79.84 Long term (current) use of oral hypoglycemic drugs; E86.1 Hypovolemia; K76.0 Fatty (change of) liver, not elsewhere classified; E66.9 Obesity, unspecified; E87.6 Hypokalemia; E83.39 Other disorders of phosphorus metabolism; Z79.4 Long term (current) use of insulin; F43.9 Reaction to severe stress, unspecified; E46 Unspecified protein-calorie malnutrition; Z68.41 Body mass index [BMI] 40.0-44.9, adult
CPT/HCPCS: 36415; 36600; 71045-TC; 80048-TC; 80053-TC; 80061-TC; 80076-TC; 82010-TC; 82803-TC; 82962-TC; 83690-TC; 83735-TC; 84100-TC; 84443-TC; 84484-TC; 84703-TC; 85025-TC; 87081-TC; C1751; G0378; J0360; J1650; J1815; J2270; J2405; J2765; J3475; J3480; J3490; J7030; J7050

== ENCOUNTER 2020-06-04 07:22 | Inpatient (IN) | payer MEDICAID ==
[~2020-06-04] VITALS: Ht 180.3 cm; Wt 121.2 kg
[2020-06-04] VITALS (10 sets, daily range): BP systolic 49–128; BP diastolic 36–80
[~2020-06-04 07:22] MED LIST changes: -ACET325T53 PO; +ASPI-1420 PO; +ATOR20TA PO; +BLOO1EAC70 MC; -Blood Sugar Diagnostic IN; -DOCU-270 PO; -GLYB2.5T4 PO; +INSU100C10 SQ; -INSU100V28 SQ; +INSU100V7 SQ; -Insulin Glargine,Hum SQ; +LISI-603 PO; -METF-440 PO; +OXYC-128 PO; +[UNRECOGNIZED DRUG - CODE] MC
--- NOTE | 2020-06-04 07:32 | NUR ---
CAME IN FOR WORSENING SOB X 2 DAYS, ALSO C/O L SIDED ABDOMINAL PAIN, TO ER BED 7, HOOKED TO MONITOR, PATIENT'S O2 SAT AT ROOM AIR 100%, CHANGED TO HOSP GOWN, PROVIDED W WARM BLANKET, DR HUSAIN AT BEDSIDE
[2020-06-04] MEDS ORDERED: ONDANSETRON HCL/PF 4 MG/2 ML VIAL ONE ×2 (07:44→10:41)
[2020-06-04] MEDS ORDERED: MORPHINE SULFATE INJ 4 MG/ML DISP.SYRIN ONE ×2 (07:45→10:42)
[2020-06-04] MEDS ORDERED: INSULIN REGULAR, HUMAN 100 UNIT/ML 10 ML VIAL ONE (07:55)
[2020-06-04] MEDS ORDERED: MORPHINE SULFATE INJ 2 MG/ML DISP.SYRIN IV ONE ×2 (08:00→11:00)
[2020-06-04] MEDS ORDERED: INSULIN REGULAR, HUMAN 100 UNIT/ML 10 ML VIAL IV ONE (08:00)
[2020-06-04] MEDS ORDERED: IV NS 0.9% 1,000 ML BAG IV ONE (08:00)
[2020-06-04] MEDS ORDERED: ONDANSETRON HCL/PF 4 MG/2 ML VIAL IVP ONE ×2 (08:00→11:00)
[2020-06-04 08:15] LABS: CALCIUM, SERUM 10.2 mg/dL (8.5-10.1); CHLORIDE 98 mmol/L (98-107); CREATININE 1.9 mg/dL (0.6-1.3); POTASSIUM 3.1 mmol/L (3.5-5.1); SODIUM SERUM 134 mmol/L (136-145); UREA NITROGEN, BLOOD 9 mg/dL (7-18)
[2020-06-04 08:17] LABS: BASOPHILS # (AUTO) 0.1 /CMM (0.0-0.2); BASOPHILS % (AUTO) 0.3 % (0.0-2.0); EOSINOPHILS % (AUTO) 0.1 % (0.0-6.0); HEMATOCRIT 47 % (33-45); LYMPHOCYTES # (AUTO) 1.6 /CMM (0.8-4.8); LYMPHOCYTES % (AUTO) 9.4 % (20.0-44.0); MEAN CORPUSCULAR HGB CONC 32 g/dl (31.0-36.0); MEAN CORPUSCULAR VOLUME 100 fL (82-100); MONOCYTES # (AUTO) 2.3 /CMM (0.1-1.30); MONOCYTES % (AUTO) 13.1 % (2.0-12.0); NEUTROPHILS # (AUTO) 13.4 /CMM (1.8-8.9); NEUTROPHILS % (AUTO) 77.1 % (43.0-81.0); PLATELET COUNT (AUTO) 348 /CMM (150-450); RED BLOOD CELL COUNT(AUTO) 4.74 MIL/uL (4.0-5.2); WHITE BLOOD COUNT (AUTO) 17.3 K/uL (4.3-11.0)
[2020-06-04 08:27] LABS: ALANINE AMINOTRANSFERASE 28 U/L (12-78); ALBUMIN 3.3 g/dL (3.4-5.0); ALKALINE PHOSPHATASE 139 U/L (46-116); ASPARTATE AMINOTRANSFERASE 14 U/L (15-37); B-TYPE NATRIURETIC PEPTIDE 46 PG/ML (0-125); BILIRUBIN,DIRECT 0.2 mg/dL (0.0-0.2); BILIRUBIN,TOTAL 0.8 mg/dL (0.2-1.0); LIPASE 161 U/L (73-393); MAGNESIUM 2.6 mg/dL (1.8-2.4); PHOSPHORUS 3.9 mg/dL (2.5-4.9); TOTAL PROTEIN, SERUM 8.3 g/dL (6.4-8.2)
[2020-06-04 08:36] LABS: CARBON DIOXIDE 8 mmol/L (21-32)
[2020-06-04 08:37] LABS: GLUCOSE 453 mg/dL (74-106)
[2020-06-04] MEDS ORDERED: IV PREMIX NS + 40 MEQ KCL 40 MEQ/L BAG IV ONE (08:38)
[2020-06-04] MEDS ORDERED: HYDR-4354 PO (08:44)
[2020-06-04 08:49] LABS: ABG BASE EXCESS -19.6 mmol/L; ABG OXYGEN SATURATION 98.3 % (92.0-98.5); ABG PCO2 15.9 mmHg (35.0-45.0); ABG PH 7.195 (7.350-7.450); ABG PO2 148.3 mmHg (75.0-100.0); AaDO2 32.6 mmHg; COHb 0.2 % (0.5-1.5); MetHb 0.4 % (0.0-1.5); O2Hb 97.7 % (94.0-97.0); SITE, ABG Right Radial; VENT MODE, BG 2LNC
[2020-06-04] MEDS ORDERED: POTASSIUM CHLORIDE 20 MEQ TAB.PRT.SR PO ONE ×2 (08:52→09:00)
--- NOTE | 2020-06-04 08:54 | NUR ---
CALLED [facility] FOR MS BED Addendum: 06/04/20 at 0855 by JAMISON ICU BED
--- NOTE | 2020-06-04 08:58 | NUR ---
PICKED UP BY KIRK ROBBINS VIA [facility] FOR CT SCAN
[2020-06-04] MEDS ORDERED: INSULIN REGULAR, HUMAN 100 UNIT in IV NS 0.9% 100 ML IV PRN ×2 (09:00)
--- NOTE | 2020-06-04 09:04 | NUR ---
CALLED [employer]. GAS PUMP ATTENDANT WAS PAGED.
--- NOTE | 2020-06-04 09:10 | NUR ---
BACK FROM CT SCAN
[2020-06-04] MEDS: IV PREMIX NS + 40 MEQ KCL 1,000 L IV PRN ×3 (09:15→20:08)
--- NOTE | 2020-06-04 09:49 | NUR ---
BED ASSIGNED: 264
--- NOTE | 2020-06-04 10:12 | NUR ---
REPORT GIVEN TO LAURYN SANDOVAL OF ICU
[2020-06-04 10:32] LABS: PHOSPHORUS 2.9 mg/dL (2.5-4.9)
[2020-06-04] MEDS ORDERED: IV NS 0.9% 1,000 ML IV PRN (12:00)
[2020-06-04] MEDS ORDERED: ACETAMINOPHEN 325 MG TABLET PO PRN (12:00)
--- NOTE | 2020-06-04 12:45 | NUR ---
RAMP FLIGHT ATTENDANT NOTES OPENING. RECEIVED PATIENT FROM ER ON [facility]. NO ISOLATION. COVID NEGATIVE. A/OX4 CZECH SPEAKER. COOPERATIVE WITH DKA DIAGNOSIS. PATIENT CAME WITH ABDOMINAL PAIN TO ER BUT AFTER PAIN MED GIVEN PATIENT STATED THE PAIN IS TOLERABLE. HR SINUS RHYTHM 88 AT THIS MOMENT. NO FEVER. PATIENT IS ABLE TO AMBULATE. ON INSULIN AND POTASSIUM CHLORIDE IV. PATIENT REFUSED THE PHOTO TAKEN FOR SKIN. WILL CONTINUE TO MONITOR.
[2020-06-04] MEDS: ENOXAPARIN SODIUM 40 MG/0.4 ML DISP.SYRIN SQ SCH (12:56)
--- NOTE | 2020-06-04 13:00 | NUR ---
HOUSE PIPING INSPECTOR NOTES PATIENT HAS DISCOLORATION ON BOTH CORIN AND GROIN AREA. THERE IS A SCAB (BLACK COLOR) AND WHITE PUSS ON PERINEAL AREA. PATIENT REFUSED PICTURE TO BE TAKEN.
[2020-06-04] MEDS: INSULIN REGULAR, HUMAN 100 UNIT in IV NS 0.9% 99 ML IV PRN ×2 (13:16)
[2020-06-04] MEDS: MORPHINE SULFATE INJ 2 MG/ML DISP.SYRIN IV PRN ×3 (13:33→23:15)
--- NOTE | 2020-06-04 14:32 | NUR ---
CLERICAL SECRETARY NOTES BELONGINGS SIGNED AND PLACED IN CHART.
[2020-06-04] MEDS: ONDANSETRON HCL/PF 4 MG/2 ML VIAL IVP PRN ×2 (14:39→19:47)
[2020-06-04] MEDS ORDERED: IV D5/ 0.9% NACL 1,000 ML IV ONE (17:30)
--- NOTE | 2020-06-04 18:50 | NUR ---
COLLAR STAY FUSER TENDER NOTES PATIENT IN BED ON INSULIN AND D5NS AND POTASSIUM CHLORIDE. ALL NEEDS ATTENDED. BG IS TRENDING DOWN. UNABLE TO OBTAIN BMP BY LAB . MIDLINE ORDERED PER DR NINA AND NURSING OFFICE NOTIFIED. RECEIVED A CALL FROM NURSING OFFICE THAT MIDLINE NURSE IS NOT AVAILABLE AT THIS TIME AND THEY WILL TRY TO CALL THEM AGAIN. NO SOB OR DISCOMFORT NOTED AT THIS TIME, PATIENT IS COMFORTABLE IN THE BED. ENDORSED TO USED CAR MAKE READY WORKER NURSE.
--- NOTE | 2020-06-04 19:20 | NUR ---
RN OPENING NOTES: PATIENT IN BED, AWAKE, AND VERBAL. AAOX4. NO RESPIRATORY DISTRESS. NO C/O PAIN AT THIS TIME. PATIENT'S DX: DKA. WILL CHECK BS Q1H ORDERED. PER AM RN, DR. NINA WANTS BMP Q6H. HOWEVER, PATIENT IS HARD STICK. LAB WAS NOT ABLE TO DRAW BLOOD. MIDLINE STILL PENDING. CHARGE NURSE AWARE. ON INSULIN DRIP, WILL TITRATE PER PROTOCOL. SAFETY PRECAUTIONS IMPLEMENTED. BED LOCKED, ALARM ON, LOW POSITION. SIDE RAILS X 2 UP. HOB ELEVATED. CALL LIGHT PLACED WITHIN REACH. WILL CONT. TO MONITOR.
--- NOTE | 2020-06-04 19:30 | NUR ---
RN OPENING NOTES Received the client stable in bed. VS wnl. No s/s of distress. client is on RA sat 100%. On external telemonitor, NSR. on insulin drip and NS/ [id number] @ 250ml/ hr. BG consistently on 160 -150. Will continue to monitor. All safety mechanisms in place.
--- NOTE | 2020-06-04 19:52 | NUR ---
RN NOTE: SPOKE WITH BRIANNE TO DELIVER IV POTASSIUM. IV POTASSIUM BAG IS ALMOST EMPTY. PER BRIANNE, HE WILL DELIVER MAGALI.
--- NOTE | 2020-06-04 21:12 | NUR ---
RN NOTE THE CONTAINER VOLUME OF POTASSIUM IV ON SPREADSHEET IS NOT CORRECT. AND IT DOES NOT GIVE YOU THE OPTION TO CORRECT.
[2020-06-04] MEDS: ATORVASTATIN 10 MG TABLET PO SCH (22:00)
--- NOTE | 2020-06-04 23:40 | NUR ---
RN NOTE LIPITOR NON ADMIN BECAUSE PT IS NPO.
[2020-06-04] MEDS: METOCLOPRAMIDE HCL 10 MG/2 ML VIAL IV SCH (23:46)
[2020-06-05] VITALS (23 sets, daily range): BP systolic 90–144; BP diastolic 37–101
[2020-06-05 00:49] LABS: CALCIUM, SERUM 8.7 mg/dL (8.5-10.1); CARBON DIOXIDE 17 mmol/L (21-32); CHLORIDE 107 mmol/L (98-107); CREATININE 1.2 mg/dL (0.6-1.3); GLUCOSE 222 mg/dL (74-106); POTASSIUM 3.7 mmol/L (3.5-5.1); SODIUM SERUM 138 mmol/L (136-145); UREA NITROGEN, BLOOD 6 mg/dL (7-18)
[2020-06-05 00:51] LABS: MAGNESIUM 1.9 mg/dL (1.8-2.4); PHOSPHORUS 1.3 mg/dL (2.5-4.9)
[2020-06-05] MEDS: IV PREMIX NS + 40 MEQ KCL 1,000 L IV PRN ×2 (01:03→05:52)
--- NOTE | 2020-06-05 01:03 | NUR ---
RN NOTE 0100 BLOOD SUGAR WAS 185. DATA DID NOT TRANSFERRED.
--- NOTE | 2020-06-05 02:00 | NUR ---
RN NOTE ENDORSED PT TO OSWALDO CHEN) FOR SHARITA.
--- NOTE | 2020-06-05 02:00 | NUR ---
RN OPENING NOTES Received the client stable in bed. VS wnl. No s/s of distress. client is on RA sat 100%. On external telemonitor, NSR. on insulin drip and NS/ [id number] @ 250ml/ hr. BG consistently on 160 -150. Will continue to monitor. All safety mechanisms in place.
[2020-06-05] MEDS: ONDANSETRON HCL/PF 4 MG/2 ML VIAL IVP PRN ×2 (02:08→09:11)
[2020-06-05] MEDS: MORPHINE SULFATE INJ 2 MG/ML DISP.SYRIN IV PRN ×5 (03:29→21:33)
[2020-06-05 05:03] LABS: BASOPHILS % (AUTO) 0.3 % (0.0-2.0); EOSINOPHILS % (AUTO) 0.7 % (0.0-6.0); HEMATOCRIT 39 % (33-45); HEMOGLOBIN 12.6 g/dL (11.5-14.8); LYMPHOCYTES # (AUTO) 1.2 /CMM (0.8-4.8); LYMPHOCYTES % (AUTO) 8.9 % (20.0-44.0); MEAN CORPUSCULAR HGB CONC 33 g/dl (31.0-36.0); MEAN CORPUSCULAR VOLUME 98 fL (82-100); MONOCYTES # (AUTO) 1.9 /CMM (0.1-1.30); MONOCYTES % (AUTO) 14.2 % (2.0-12.0); NEUTROPHILS # (AUTO) 10.2 /CMM (1.8-8.9); NEUTROPHILS % (AUTO) 75.9 % (43.0-81.0); PLATELET COUNT (AUTO) 237 /CMM (150-450); RED BLOOD CELL COUNT(AUTO) 3.93 MIL/uL (4.0-5.2); WHITE BLOOD COUNT (AUTO) 13.4 K/uL (4.3-11.0)
[2020-06-05 05:22] LABS: CALCIUM, SERUM 8.7 mg/dL (8.5-10.1); MAGNESIUM 1.8 mg/dL (1.8-2.4); PHOSPHORUS 1.4 mg/dL (2.5-4.9); POTASSIUM 3.5 mmol/L (3.5-5.1)
[2020-06-05] MEDS: INSULIN REGULAR, HUMAN 100 UNIT in IV NS 0.9% 99 ML IV PRN ×2 (05:22)
[2020-06-05 05:39] LABS: THYROID STIMULATING HORMONE 0.61 uIU/mL (0.358-3.74)
[2020-06-05] MEDS: METOCLOPRAMIDE HCL 10 MG/2 ML VIAL IV SCH ×4 (06:04→23:32)
[2020-06-05] MEDS: LISINOPRIL (20MG) 20 MG TABLET PO SCH (09:00)
[2020-06-05] MEDS: POTASSIUM PHOSPHATE MM 7.5 MMOL in IV NS 0.9% 100 ML IV SCH ×2 (09:10→12:18)
[2020-06-05] MEDS: Potassium Chloride 20 MEQ in IV D5/ 0.9% NACL 1,000 ML IV PRN ×2 (09:11→21:31)
[2020-06-05] MEDS: PANTOPRAZOLE 40 MG VIAL IV SCH (09:12)
[2020-06-05] MEDS: ENOXAPARIN SODIUM 40 MG/0.4 ML DISP.SYRIN SQ SCH (09:12)
[2020-06-05] MEDS: ASPIRIN EC 81 MG TABLET.DR PO SCH (09:12)
[2020-06-05 11:52] LABS: CALCIUM, SERUM 7.7 mg/dL (8.5-10.1); MAGNESIUM 1.6 mg/dL (1.8-2.4); PHOSPHORUS 1.7 mg/dL (2.5-4.9)
--- NOTE | 2020-06-05 11:58 | NUR ---
GLUCOSE HIGH AT 465 ON BMP LAB, THIS IS A FALSELY HIGH NUMBER D/T IVF WITH DEXTROSE RUNNING IN THE SAME ARM. PT IS ON INSULIN GTT, BLOOD SUGARS CHECKED Q1H PER MD ORDERS. LAST BLOOD SUGAR WAS 161.
[2020-06-05] MEDS ORDERED: Magnesium 1 GM/2 ML VIAL IV ONE (13:30)
[2020-06-05] MEDS ORDERED: DEXTROSE 50%-WATER 50 ML DISP.SYRIN IV PRN (14:00)
[2020-06-05] MEDS: Magnesium 1GM/D5W 100ML PREMIX 100 ML IV SCH ×2 (14:01→15:16)
[2020-06-05] MEDS ORDERED: FEE PK DOSING 1 MIN EA MC ONE (15:32)
[2020-06-05] MEDS: VANCOMYCIN 1.25 GM in IV D5W 250 ML IV SCH (16:13)
[2020-06-05] MEDS ORDERED: K PHOS NEUTRAL 250 MG TABLET PO ONE (17:00)
[2020-06-05] MEDS ORDERED: INSULIN GLARGINE, 100 UNIT/ML CARTRIDGE SQ ONE ×2 (17:00→17:30)
[2020-06-05] MEDS: PIPERACILLIN /TAZOBACTAM 3.375 G in IV D5W 50 ML IV SCH ×2 (18:02→23:29)
--- NOTE | 2020-06-05 18:34 | NUR ---
END OF SHIFT NOTE: PT HAD AN UNEVENTFUL SHIFT. PER MD ORDERS. LANTUS 30 UNITS WAS GIVEN AT 1700, INSULIN GTT IS TO BE TURNED OFF AT 1900. PT WILL START AC/HS ACCUCHECKS AT HS TONIGHT. AFTER INSULIN GTT IS TURNED OFF PT MAY TRANSFER TO MED/SURG PER MD ORDERS. DR. MAICO Chen ASSESSED PTS LEFT UPPER THIGH BUMP AND HARDNESS, PER MD THIS IS POSSIBLY AN ABSCESS. ULTRASOUND WAS DONE PER MD ORDERS. PT STARTED A DIABETIC DIET FOR DINNER, PT ATE <25%. RN INFORMED PT THAT SHE NEEDS TO GIVE A URINE SAMPLE. PT STATES THAT IT IS TOO HARD FOR HER TO GIVE A URINE SAMPLE ON THE COMMODE, PT ASKED IF SHE CAN WAIT TILL SHE TRANSFERS TO MED/SURG WHEN SHE CAN USE A REGULAR TOILET, RN AGREED.
--- NOTE | 2020-06-05 19:30 | NUR ---
SCREEN PRINTING LOADER UNLOADER OPENING NOTES: Rec'd pt in bed awake, A&Ox4. On RA O2 WNL. No SOB or respiratory distress noted. SR on tele monitor. Left midline patent and flushed. Dressing c/d/i. IV site on RAC #18 and LAC #18 patent and flushed. Dressing c/d/i. Safety measures in place. Will continue to monitor.
--- NOTE | 2020-06-05 20:33 | NUR ---
FLEET SALES MANAGER NOTE: Gave report to Ruthy. Transferring pt to [phone].
[2020-06-05] MEDS: BLOOD SUGAR DIAGNOSTIC 1 EACH STRIP VI SCH ×2 (21:00→21:31)
--- NOTE | 2020-06-05 21:00 | NUR ---
RN NOTES TRANSFER FROM ICU NOW MEDSURG, ALERT AND ORIENTED X4, ROOM AIR, EPIGASTRIC PAIN, DX OF DKA, S/P INSULIN DRIP, BG CONTROLLED, TATYANA MIDLINE, LAC AND RAC PERIPHERAL LINE. AMBULATORY, VOIDING SPONTANEOUSLY, ACCUCHECK ACHS, MODERATE SLIDING SCALE, LEFT INNER THIGH AND SUPRAPUBIC TENDERNESS WITH HARDENED AREAS, HAD VASCULAR EVALUATION, PENDING RESULTS, EDUCATED ON TREATMENT AND MEDICATION, KEPT SAFE, WILL CONTINUE TO MONITOR.
--- NOTE | 2020-06-05 21:00 | NUR ---
STARTING ON ACCUCHECK ACHS, WILL BEGIN AT 2200
[2020-06-05] MEDS: ATORVASTATIN 10 MG TABLET PO SCH (21:31)
[2020-06-05] MEDS: *INSULIN REGULAR(HUMULIN R)HUM 100 UNIT/ML VIAL SQ PRN (21:31)
[2020-06-05] MEDS: IV NS 0.9% 1,000 ML IV PRN (23:39)
[2020-06-06] MEDS: VANCOMYCIN 1.25 GM in IV D5W 250 ML IV SCH ×2 (00:38→09:07)
[2020-06-06] MEDS: MORPHINE SULFATE INJ 2 MG/ML DISP.SYRIN IV PRN ×5 (02:42→20:46)
[2020-06-06] MEDS ORDERED: MAGNESIUM CITRATE 296 ML BOTTLE ONE (03:30)
--- NOTE | 2020-06-06 03:30 | NUR ---
RN NOTES PATIENT ON KCL 20 MEQ IV AT 125/ML/HR, POTASSIUM LEVEL 5.0, NOTIFIED DR. DAVID. NEW ORDER TO DC KCL, NS AT 100ML/HR, ORDER NOTED AND CARRIED OUT.
[2020-06-06] MEDS: PIPERACILLIN /TAZOBACTAM 3.375 G in IV D5W 50 ML IV SCH ×4 (05:17→23:59)
[2020-06-06] MEDS: METOCLOPRAMIDE HCL 10 MG/2 ML VIAL IV SCH ×3 (05:18→17:21)
--- NOTE | 2020-06-06 06:23 | NUR ---
RN NOTES PM SHIFT ALERT AND ORIENTED X4, ROOM AIR, EPIGASTRIC PAIN, DKA RESOLVED, ON ACCUCHECK WITH SLIDING SCALE ACHS, MORPHINE 2MG IV GIVEN WITH MODERATE RELIEF, NO N/V, CONTINUE ZOSYN, VANCOMYCIN, TROUGH ON 06/06/20 AT 1500, FOR SURGICAL CONSULT REGARDING ABSCESSES IN SUPRAPUBIC AND LEFT INNER THIGH, ENCOURAGE COMPLIANCE TO DIABETIC REGIMEN AT HOME. PENDING RESULTS OF ULTZ OF LEFT INNER THIGH
[2020-06-06] MEDS: BLOOD SUGAR DIAGNOSTIC 1 EACH STRIP VI SCH ×4 (06:48→21:33)
[2020-06-06] MEDS: INSULIN REGULAR, HUMAN 100 UNIT/ML 3 ML VIAL SQ PRN ×3 (06:55→17:20)
--- NOTE | 2020-06-06 07:00 | NUR ---
RN NOTES CORRECTION NO TUBE INTAKE, ORAL INTAKE 650 ML
[2020-06-06 07:03] LABS: BASOPHILS % (AUTO) 0.2 % (0.0-2.0); EOSINOPHILS % (AUTO) 1.7 % (0.0-6.0); HEMATOCRIT 36 % (33-45); LYMPHOCYTES # (AUTO) 1.4 /CMM (0.8-4.8); LYMPHOCYTES % (AUTO) 14.6 % (20.0-44.0); MEAN CORPUSCULAR HGB CONC 33 g/dl (31.0-36.0); MEAN CORPUSCULAR VOLUME 97 fL (82-100); MONOCYTES % (AUTO) 10.3 % (2.0-12.0); NEUTROPHILS # (AUTO) 6.9 /CMM (1.8-8.9); NEUTROPHILS % (AUTO) 73.2 % (43.0-81.0); PLATELET COUNT (AUTO) 191 /CMM (150-450); RED BLOOD CELL COUNT(AUTO) 3.73 MIL/uL (4.0-5.2); WHITE BLOOD COUNT (AUTO) 9.4 K/uL (4.3-11.0)
[2020-06-06 07:05] LABS: CALCIUM, SERUM 8.7 mg/dL (8.5-10.1); MAGNESIUM 2.2 mg/dL (1.8-2.4); PHOSPHORUS 3.3 mg/dL (2.5-4.9); POTASSIUM 3.2 mmol/L (3.5-5.1)
--- NOTE | 2020-06-06 07:47 | NUR ---
MS/RN OPENING NOTES AWAKE ALERT AND ORIENTED X4, ROOM AIR, C/O OF EPIGASTRIC PAIN, DKA RESOLVED, ON ACCUCHECK WITH SLIDING SCALE ACHS, On MORPHINE 2MG IV Q4 PRN, NO N/V, CONTINUE ZOSYN, VANCOMYCIN, TROUGH ON 06/06/20 AT 1500, FOR SURGICAL CONSULT REGARDING ABSCESSES IN SUPRAPUBIC AND LEFT INNER THIGH, ENCOURAGE COMPLIANCE TO DIABETIC REGIMEN AT HOME. PENDING RESULTS OF US OF LEFT INNER THIGH
[2020-06-06 08:00] VITALS: BP 120/86
[2020-06-06] MEDS: PANTOPRAZOLE 40 MG VIAL IV SCH (09:15)
[2020-06-06] MEDS: ASPIRIN EC 81 MG TABLET.DR PO SCH (09:15)
[2020-06-06] MEDS: LISINOPRIL (20MG) 20 MG TABLET PO SCH (09:15)
[2020-06-06] MEDS: ENOXAPARIN SODIUM 40 MG/0.4 ML DISP.SYRIN SQ SCH (09:18)
--- NOTE | 2020-06-06 11:00 | NUR ---
RN NOTES PATIENT WITH NEW ORDER FOR KCL 20 MEQ PO 2 DOSES, POTASSIUM LEVEL 3.2, NOTIFIED DR. DAVID. NEW ORDER NOTED AND CARRIED OUT.
[2020-06-06] MEDS: POTASSIUM CHLORIDE 20 MEQ TAB.PRT.SR PO SCH ×2 (11:19→12:08)
--- NOTE | 2020-06-06 13:00 | NUR ---
MS/RN NOTES CALLED RADIOLOGY DEPARTMENT REGARDING SONOGRAM TO R/O ABSCESSES IN LEFT INNER THIGH AND SUPRAPUBIC TENDERNESS WITH HARDENED AREAS RESULTS REQUESTED BY DR NINA, RADIOLOGY SAID, RESULTS, STILL
[2020-06-06 16:00] VITALS: BP 156/84
--- NOTE | 2020-06-06 16:00 | NUR ---
MS/RN NOTESRELATE VANCO TROUGH RESULTS OF 25 TO PHARMACY WITH NEW ORDER TO HOLD 1600 DOSE.ORDER NOTED AND CARRY OUT
[2020-06-06] MEDS: IV NS 0.9% 1,000 ML IV PRN (17:30)
--- NOTE | 2020-06-06 18:39 | NUR ---
MS/RN CLOSING NOTES ALERT AND ORIENTED X4,AT ROOM AIR, C/O OF ABD PAIN, ON ACCUCHECK WITH SLIDING SCALE AC/ HS, MORPHINE 2MG IV GIVEN WITH MODERATE RELIEF, NO N/V, CONTINUE ZOSYN, VANCOMYCIN, TROUGH ON 1500 25, VANCO TROUGH TOMRROW AT 0600 FOR SURGICAL PROCEDURE I&D AND POSSIBLE DEBRIDEMENT OF ABSCESSES IN SUPRAPUBIC AND LEFT INNER THIGH CAVITY,PT NPO AFTER MIDNIGHT ENCOURAGE COMPLIANCE TO DIABETIC REGIMEN . PENDING RESULTS OF ULTZ OF LEFT INNER THIGH WILL REPORT TO ONCOMING SHIFT
--- NOTE | 2020-06-06 19:00 | NUR ---
rn ms opening notes received patient in bed awake alert and oriented x4, respirations even and unlabored with equal rise and fall of chest, denies any pain or discomfort at this time, iv site to left upper arm midline, intact and patent no redness, no infiltration, ivf running as ordered, oriented to staff and call light and kept within reach, safety precautions in place, low bed and locked, patient aware npo status for scheduled procedure tomorrow verbalizes she understands, toileting need and fluids offered, will continue to monitor and attend to needs.
[2020-06-06 20:00] VITALS: BP 128/62
[2020-06-06 20:28] VITALS: BP 128/62
--- NOTE | 2020-06-06 20:46 | NUR ---
rn ms notes patient complaint of pain to abdominal area, vs wnl , morphine was given for pain as ordered prn. will continue to monitor.
[2020-06-06] MEDS: ATORVASTATIN 10 MG TABLET PO SCH (21:23)
[2020-06-06] MEDS: INSULIN GLARGINE, 100 UNIT/ML CARTRIDGE SQ SCH (21:27)
[2020-06-06] MEDS: *INSULIN REGULAR(HUMULIN R)HUM 100 UNIT/ML VIAL SQ PRN (21:28)
[2020-06-07] MEDS: MORPHINE SULFATE INJ 2 MG/ML DISP.SYRIN IV PRN ×5 (00:46→20:00)
--- NOTE | 2020-06-07 00:46 | NUR ---
RN MS NOTES PATIENT COMPLAINED OF PAIN TO ABD AREA 8/10 REQUESTED FOR MORPHINE VS WNL. PRN GIVEN ORDERED WILL CONTINUE TO MONITOR FOR EFFECTIVENESS.
[2020-06-07] MEDS: PIPERACILLIN /TAZOBACTAM 3.375 G in IV D5W 50 ML IV SCH ×3 (05:08→17:59)
[2020-06-07] MEDS: METOCLOPRAMIDE HCL 10 MG/2 ML VIAL IV SCH ×4 (05:09→17:59)
--- NOTE | 2020-06-07 05:10 | NUR ---
RN MS NOTES PATIENT COMPLAINED OF PAIN TO ABD AREA 8 AND LEFT THIGH AREA 7/10 REQUESTED FOR MORPHINE VS WNL. PRN GIVEN ORDERED WILL CONTINUE TO MONITOR FOR EFFECTIVENESS.
[2020-06-07] MEDS: INSULIN REGULAR, HUMAN 100 UNIT/ML 3 ML VIAL SQ PRN ×2 (06:12→17:51)
[2020-06-07] MEDS: BLOOD SUGAR DIAGNOSTIC 1 EACH STRIP VI SCH ×4 (06:12→21:36)
--- NOTE | 2020-06-07 06:13 | NUR ---
RN MS NOTES ACCUCHECK CHECK NOTED AT 289 PATIENT HAVE BEEN NPO SINCE MIDNIGHT SCHEDULED FOR PROCEDURE IN OR WIT DR. STEVENSON.
--- NOTE | 2020-06-07 06:14 | NUR ---
RN MS NOTES NO INSULIN GIVEN NPO SURGERY
--- NOTE | 2020-06-07 06:28 | NUR ---
rn ms closing notes patient in bed awake alert and oriented x4, respirations even and unlabored with equal rise and fall of chest, denies any pain or discomfort at this time, iv site to left upper arm midline, and left ac iv site , intact and patent no redness, no infiltration, ivf running as ordered, call light kept within reach, safety precautions in place, low bed and locked, patient had been npo status since midnight for scheduled procedure at 9am by in OR , verbalizes she understands, toileting needs and fluids were offered, will continue to monitor and attend to needs and endorse to next shift.
[2020-06-07 07:06] LABS: BASOPHILS % (AUTO) 0.4 % (0.0-2.0); EOSINOPHILS % (AUTO) 2.5 % (0.0-6.0); HEMATOCRIT 34 % (33-45); HEMOGLOBIN 11.5 g/dL (11.5-14.8); LYMPHOCYTES # (AUTO) 1.3 /CMM (0.8-4.8); LYMPHOCYTES % (AUTO) 15.1 % (20.0-44.0); MEAN CORPUSCULAR HGB CONC 34 g/dl (31.0-36.0); MEAN CORPUSCULAR VOLUME 97 fL (82-100); MONOCYTES # (AUTO) 0.8 /CMM (0.1-1.30); MONOCYTES % (AUTO) 9.5 % (2.0-12.0); NEUTROPHILS # (AUTO) 6.5 /CMM (1.8-8.9); NEUTROPHILS % (AUTO) 72.5 % (43.0-81.0); PLATELET COUNT (AUTO) 167 /CMM (150-450); RED BLOOD CELL COUNT(AUTO) 3.51 MIL/uL (4.0-5.2); WHITE BLOOD COUNT (AUTO) 8.9 K/uL (4.3-11.0)
--- NOTE | 2020-06-07 07:30 | NUR ---
RN OPEN NOTES PATIENT IS A/O X 4. CALM AND COOPERATIVE WITH NO SIGNS OF DISTRESS IN ROOM AIR. NO COMPLAINTS OF PAIN AT THE MOMENT. PATIENT IN NPO D/T SURGERY IN THE MORNING, CONSENT AND CHECKLIST DONE BY TEAM MEMBER NURSE. SAFETY MEASURES ARE APPLIED, BED IS IN LOWEST LOCKED POSITION WITH SIDE RAILS UP X2 FOR SAFETY. CALL LIGHT IS WITHIN REACH. WILL CONTINUE TO MONITOR.
[2020-06-07] MEDS: ASPIRIN EC 81 MG TABLET.DR PO SCH (09:00)
[2020-06-07] MEDS ORDERED: VANCOMYCIN 1 GM in IV D5W 250 ML IV SCH (09:00)
[2020-06-07] MEDS: PANTOPRAZOLE 40 MG VIAL IV SCH (09:00)
[2020-06-07] MEDS: LISINOPRIL (20MG) 20 MG TABLET PO SCH (09:00)
[2020-06-07 09:15] LABS: BILIRUBIN,TOTAL 0.7 mg/dL (0.2-1.0); CALCIUM, SERUM 8.6 mg/dL (8.5-10.1); CREATININE 0.7 mg/dL (0.6-1.3); MAGNESIUM 2.3 mg/dL (1.8-2.4); PHOSPHORUS 3.9 mg/dL (2.5-4.9); POTASSIUM 2.9 mmol/L (3.5-5.1); TOTAL PROTEIN, SERUM 5.6 g/dL (6.4-8.2)
[2020-06-07] MEDS ORDERED: LIDOCAINE 1% INJ 50 ML MDV IJ ONE (09:26)
[2020-06-07] MEDS ORDERED: BUPIVACAINE MPF 0.5% W/EPI INJ 30 ML VIAL ONE (09:26)
[2020-06-07] MEDS ORDERED: BACITRACIN 50000 UNITS/VIAL ONE (09:27)
[2020-06-07] MEDS ORDERED: POTASSIUM CHLORIDE 20 MEQ TAB.PRT.SR PO SCH (10:00)
--- NOTE | 2020-06-07 10:00 | NUR ---
RN NOTES PATIENTS PROCEDURE GOT MOVED TO AFTERNOON D/T HAVING LOW POTASSIUM. DR. MAGALLON ORDERED POTASSIUM PO WITH ORANGE JUICE STAT AND POTASSIUM IV. POTASSIUM LABS TO BE CHECKED BY 2PM. NOTED AND CARRIED ON.
[2020-06-07] MEDS ORDERED: POTASSIUM CHLORIDE 20 MEQ TAB.PRT.SR PO ONE (11:15)
[2020-06-07] MEDS ORDERED: POTASSIUM CL. PREMIX PERIPHER. 50 ML IV SCH (11:30)
[2020-06-07] MEDS: VANCOMYCIN 1.25 GM in IV D5W 250 ML IV SCH (15:25)
[2020-06-07 16:20] VITALS: BP 126/78
--- NOTE | 2020-06-07 19:00 | NUR ---
RN NOTES PATIENT KEEPS CONSTANTLY INTERRUPTING HER IV ANTIBIOTICS BY CONSTANTLY STOPPING THE ANTIBIOTIC ON HER OWN AND WALKING TO THE RESTROOM VERY FREQUENTLY. TOLD THE PATIENT THE IMPORTANCE AND RISKS FOR NEEDING TO COMPLETE HER ANTIBIOTIC AND SHE SAID SHE UNDERSTANDS.
--- NOTE | 2020-06-07 19:59 | NUR ---
JAIME OPEN NOTES PATIENT IS A/O X 4. CALM AND COOPERATIVE WITH NO SIGNS OF DISTRESS IN ROOM AIR. NO COMPLAINTS OF PAIN AT THE MOMENT. [facility] AND WAS ABLE TO TOLERATE. ACCUCHECK DONE AND INSULIN WAS GIVEN AFTER MEAL. PATIENT WILL BE NPO D/T SURGERY IN THE MORNING, CONSENT DONE. CHECKLIST NEEDS TO BE COMPLETED. SAFETY MEASURES ARE APPLIED, BED IS IN LOWEST LOCKED POSITION WITH SIDE RAILS UP X2 FOR SAFETY. CALL LIGHT IS WITHIN REACH. WILL ENDORSE TO THE NEXT SHIFT. Addendum: 06/07/20 at 2006 by FERN HUFFMAN RN JAIME OJEDA
[2020-06-07 20:00] VITALS: BP 153/85
--- NOTE | 2020-06-07 20:00 | NUR ---
MS RN OPENING NOTE: Patient in bed awake and alert. Patient is in no apparent distress. On room air. No SOB; breathing is unlabored and even. Noted Left Upper arm midline. Flushes well and patent. No redness or infiltration. Infusing IV 0.9% NS at 75mL/hr. Patient cooperative. Safety measure in place. Bed is locked, alarm is on, side rails x2 are up, and call light is within reach.
--- NOTE | 2020-06-07 20:00 | NUR ---
MS RN NOTE: Patient complains of pain on her abdomen and left leg. Patient describes pain as aching and sharp. Patient rates pain 8 on a 0-10 scale. Administered PRN Morphine per order. Will follow up.
--- NOTE | 2020-06-07 20:30 | NUR ---
MS RN NOTE: Reassess pain. Patient rates pain 6 on a 0-10 scale and stated Morphine was effective.
[2020-06-07] MEDS: ATORVASTATIN 10 MG TABLET PO SCH (21:30)
[2020-06-07] MEDS: INSULIN GLARGINE, 100 UNIT/ML CARTRIDGE SQ SCH (21:36)
[2020-06-07] MEDS: *INSULIN REGULAR(HUMULIN R)HUM 100 UNIT/ML VIAL SQ PRN (21:46)
[2020-06-08] MEDS: PIPERACILLIN /TAZOBACTAM 3.375 G in IV D5W 50 ML IV SCH ×5 (00:20→23:47)
[2020-06-08] MEDS: METOCLOPRAMIDE HCL 10 MG/2 ML VIAL IV SCH ×5 (00:21→23:47)
[2020-06-08] MEDS: MORPHINE SULFATE INJ 2 MG/ML DISP.SYRIN IV PRN ×5 (00:21→20:24)
[2020-06-08] MEDS: VANCOMYCIN 1.25 GM in IV D5W 250 ML IV SCH ×2 (03:23→16:19)
--- NOTE | 2020-06-08 06:02 | NUR ---
MS RN NOTE: Reassess pain. Patient rates pain 6 on a 0-10 scale and stated Morphine was effective.
[2020-06-08] MEDS: BLOOD SUGAR DIAGNOSTIC 1 EACH STRIP VI SCH ×4 (06:38→22:21)
[2020-06-08] MEDS: INSULIN REGULAR, HUMAN 100 UNIT/ML 3 ML VIAL SQ PRN ×3 (06:43→19:09)
--- NOTE | 2020-06-08 06:52 | NUR ---
MS RN CLOSING NOTE: Patient in bed awake and alert. Patient is in no apparent distress. On room air. No SOB; breathing is unlabored and even. Patient cooperative. Safety measure in place. Bed is locked, alarm is on, side rails x2 are up, and call light is within reach. Will endorse to next shift.
[2020-06-08 07:55] VITALS: BP 124/72
[2020-06-08 08:00] VITALS: BP 124/72
--- NOTE | 2020-06-08 08:00 | NUR ---
RN NOTES RECEIVED PATIENT IN THE BED A/O X4. PATIENT HAS NO ACUTE RESPIRATORY DISTRESS, V/S WNL. WAS COMPLAINING OF PAIN 6/10 ON LEFT THIGH UPPER ABSCESS SWOLLEN, HOT TO TOUCH. ALSO ADMINISTERED SCHEDULED MEDICATION, IV ACCESS MIDLINE ON LEFT UA INTACT, INFUSING NS AT 100 ML/HR. CALL LIGHT WITHIN TO REACH, PATIENT USING BATHROOM. CONTINUED MONITORING.
[2020-06-08 08:27] LABS: CALCIUM, SERUM 8.4 mg/dL (8.5-10.1); CREATININE 0.7 mg/dL (0.6-1.3); POTASSIUM 2.9 mmol/L (3.5-5.1)
[2020-06-08] MEDS: ASPIRIN EC 81 MG TABLET.DR PO SCH (09:42)
[2020-06-08] MEDS: PANTOPRAZOLE 40 MG VIAL IV SCH (09:42)
[2020-06-08] MEDS: POTASSIUM CHLORIDE 20 MEQ TAB.PRT.SR PO SCH ×2 (09:42→09:52)
[2020-06-08] MEDS: LISINOPRIL (20MG) 20 MG TABLET PO SCH (09:43)
--- NOTE | 2020-06-08 09:51 | NUR ---
RN NOTES ADMINISTERED MORPHINE SULFATE 2 MG/ML IV PUSH FOR RIGHT UPPER THIGH 07/29 PER PATIENT REQUEST, V/S TAKEN BP 124.72, P-78, R-20. CONTINUED MONITORING.
[2020-06-08] MEDS: IV NS 0.9% 1,000 ML IV PRN (09:58)
[2020-06-08] MEDS: Potassium Chloride 10 MEQ, LIDOCAINE HCL/PF 1% 1 ML in IV NS 0.9% 50 ML IV SCH ×4 (11:18→14:29)
--- NOTE | 2020-06-08 12:53 | NUR ---
RN NOTES BS-192 MG/DL NO COVERAGE GIVEN, PATIENT NPO GOING SURGERY 1500 PER TATAN SURGEON ORDERS. INFUSING KCL WITH LIDOCAINE 56 ML/HR INTACT ON LEFT UA. CONTINUED MONITORING.
--- NOTE | 2020-06-08 14:30 | NUR ---
rn notes administered morphine sulfate 2 mg/ml iv push for pain 7/10 left thigh per patient request, v/s taken bp- 112/73,p-96, t-99.8,r-20.
--- NOTE | 2020-06-08 14:45 | NUR ---
RN NOTES ADMINISTERED TYLENOL 650 MG PO PRN FOR T-99.8, AND COOLING MEASURE..
[2020-06-08 14:46] VITALS: BP 112/73
[2020-06-08 14:56] LABS: CALCIUM, SERUM 8.7 mg/dL (8.5-10.1); CREATININE 0.6 mg/dL (0.6-1.3); POTASSIUM 3.6 mmol/L (3.5-5.1)
[2020-06-08 16:00] VITALS: BP 117/74
[2020-06-08] MEDS ORDERED: ANESTHESIA TRAY IN PYXIS 1 EA TRAY MC ONE (16:16)
[2020-06-08] MEDS ORDERED: FLUMAZENIL 0.5 MG VIAL ONE (16:27)
[2020-06-08] MEDS ORDERED: MIDAZOLAM HCL 2 MG/2ML VIAL ONE (16:27)
[2020-06-08] MEDS ORDERED: FENTANYL PF 100MCG/2ML AMPUL ONE (16:28)
--- NOTE | 2020-06-08 16:29 | NUR ---
RN NOTES PATIENT PUBLIC SERVICE REPRESENTATIVE FOR SURGERY AT THIS TIME.RETAKEN, T-99.0, WILL CONTINUED INFUSION OF VANCOMYCIN 125 ML/HR AT LEFT MIDLINE.
[2020-06-08] MEDS ORDERED: HYDROCODONE/APAP 10/325MG TABLET ONE (18:03)
[2020-06-08 18:30] VITALS: BP 114/80
--- NOTE | 2020-06-08 18:30 | NUR ---
rn notes patient back from surgery at this time, stable v/s taken bp114/80, t-98.9, p-76. patient has dressing in upper thigh intact, new orders taken and carried out. BS-263 mg/dl coverage given, infusing Zosyn 100 ml/hr on left arm. patient tolerated dinner well. call light within to reach. endorsed oncoming nurse follow plan of care.
[2020-06-08] MEDS ORDERED: ONDANSETRON HCL/PF 4 MG/2 ML VIAL IVP PRN (19:00)
[2020-06-08] MEDS ORDERED: IV LR 1000 ML 1,000 ML IV PRN (19:00)
[2020-06-08] MEDS ORDERED: HYDROMORPHONE 1 MG/1 ML DISP.SYRIN IV PRN (19:00)
--- NOTE | 2020-06-08 19:30 | NUR ---
MS/RN OPENING NOTES RECEIVED PATIENT IN BED RESTING. ALERT AND ORIENTED X 4. PATIENT STATES NO PAIN AT THIS TIME. NO SOB NOTED, NO RESPIRATORY DISTRESS NOTED. PATIENT IS ON ROOM AIR TOLERATING WELL. LEFT THIGH DRESSING IS INTACT WITH NO SIGNS OF ACTIVE BLEEDING NOTED. PATIENT HAS LEFT UPPER ARM MIDLINE IN PLACE RUNNING LR AT 100 MLS/HR. SAFETY MEASURES ARE IN PLACE, BED IS LOCKED AND PLACED IN THE LOWEST POSITION WITH SIDE RAILS UP X 2. CALL LIGHT IS WITHIN REACH. WILL CONTINUE TO MONITOR PATIENT THROUGH OUT SHIFT.
[2020-06-08 20:00] VITALS: BP 104/59
--- NOTE | 2020-06-08 20:25 | NUR ---
MS/RN NOTES PATIENT IS STATING PAIN AROUND LEFT THIGH AREA. MORPHINE 2 MG IVP WAS GIVEN. V/S ARE WITHIN NORMAL LIMITS. WILL CONTINUE TO MONITOR.
[2020-06-08] MEDS: ATORVASTATIN 10 MG TABLET PO SCH (22:13)
[2020-06-08] MEDS: INSULIN GLARGINE, 100 UNIT/ML CARTRIDGE SQ SCH (22:19)
[2020-06-08] MEDS: *INSULIN REGULAR(HUMULIN R)HUM 100 UNIT/ML VIAL SQ PRN (22:20)
[2020-06-08] MEDS: HYDROCODONE/APAP 10/325MG TABLET PO PRN (22:40)
--- NOTE | 2020-06-08 22:40 | NUR ---
MS/RN NOTES PATIENT IS STATING PAIN AROUND LEFT THIGH AREA. NORCO 10-325 PO WAS GIVEN. V/S ARE WITHIN NORMAL LIMITS. WILL CONTINUE TO MONITOR.
[2020-06-09] MEDS: VANCOMYCIN 1.25 GM in IV D5W 250 ML IV SCH ×2 (02:26→15:40)
[2020-06-09] MEDS: MORPHINE SULFATE INJ 2 MG/ML DISP.SYRIN IV PRN ×2 (02:27→08:21)
--- NOTE | 2020-06-09 02:30 | NUR ---
MS/RN NOTES PATIENT IS STATING PAIN AROUND LEFT THIGH AREA. MORPHINE 2 MG IVP WAS GIVEN. V/S ARE WITHIN NORMAL LIMITS. WILL CONTINUE TO MONITOR.
[2020-06-09] MEDS: HYDROCODONE/APAP 10/325MG TABLET PO PRN ×3 (05:25→15:54)
--- NOTE | 2020-06-09 05:30 | NUR ---
MS/RN NOTES PATIENT IS STATING PAIN AROUND LEFT THIGH AREA. NORCO 10-325 PO WAS GIVEN. V/S ARE WITHIN NORMAL LIMITS. WILL CONTINUE TO MONITOR.
[2020-06-09 07:08] LABS: CALCIUM, SERUM 8.7 mg/dL (8.5-10.1); CREATININE 0.8 mg/dL (0.6-1.3); POTASSIUM 3.9 mmol/L (3.5-5.1)
[2020-06-09] MEDS: PIPERACILLIN /TAZOBACTAM 3.375 G in IV D5W 50 ML IV SCH ×2 (07:08→11:17)
[2020-06-09] MEDS: METOCLOPRAMIDE HCL 10 MG/2 ML VIAL IV SCH ×2 (07:08→11:17)
--- NOTE | 2020-06-09 07:15 | NUR ---
MS/RN CLOSING NOTES PATIENT IN BED RESTING. ALERT AND ORIENTED X 4. NO SOB NOTED, NO RESPIRATORY DISTRESS NOTED. PATIENT IS ON ROOM AIR TOLERATING WELL. LEFT THIGH DRESSING IS INTACT WITH NO SIGNS OF ACTIVE BLEEDING NOTED. PATIENT LEFT UPPER ARM MIDLINE WAS DISLODGED, NEW #22 G IV WAS STARTED ON LEFT HAND, INTACT AND FLUSHING WELL, IN PLACE RUNNING LR AT 100 MLS/HR. ALL PATIENTS NEEDS HAVE BEEN MET DURING SHIFT. SAFETY MEASURES ARE IN PLACE, BED IS LOCKED AND PLACED IN THE LOWEST POSITION WITH SIDE RAILS UP X 2. CALL LIGHT IS WITHIN REACH. WILL CONTINUE TO MONITOR PATIENT THROUGH OUT SHIFT.
[2020-06-09] MEDS: BLOOD SUGAR DIAGNOSTIC 1 EACH STRIP VI SCH ×3 (07:18→17:33)
[2020-06-09] MEDS: *INSULIN REGULAR(HUMULIN R)HUM 100 UNIT/ML VIAL SQ PRN ×2 (07:20→11:42)
--- NOTE | 2020-06-09 07:24 | NUR ---
MS RN NOTES RECEIVED GLUCOSE LAB RESULTS FROM Reny LUCIANO. PER NIGHTSHIFT PATIENT'S BLOOD GLUCOSE 330, AND 8 UNITS OF INSULIN GIVEN PER SLIDING SCALE PROTOCOL, BY JAIME RAYGOZA. WILL CONTINUE TO MONITOR PATIENT.
--- NOTE | 2020-06-09 07:57 | NUR ---
MS RN NOTES PATIENT RECEIVED AWAKE, ALERT AND ORIENTED X 4. PATIENT ON ROOM AIR WITH NO RESPIRATORY DISTRESS AT THIS TIME, WITH EVEN NON-LABORED BREATHING, AND NO SOB. PATIENT SKIN WARM AND DRY TO TOUCH. IV ACCESS INTACT AND PATENT. PROVIDED COMFORT MEASURES TO PATIENT. SAFETY PRECAUTIONS IN PLACE WITH BED IN THE LOWEST POSITION, BED LOCKED, BILATERAL SIDE RAILS UP, AND CALL LIGHT WITHIN EASY REACH OF THE PATIENT. WILL CONTINUE TO MONITOR PATIENT.
[2020-06-09 08:00] VITALS: BP 120/62
[2020-06-09] MEDS: ASPIRIN EC 81 MG TABLET.DR PO SCH (08:20)
[2020-06-09] MEDS: PANTOPRAZOLE 40 MG VIAL IV SCH (08:20)
[2020-06-09 08:22] VITALS: BP 120/62
[2020-06-09] MEDS: LISINOPRIL (20MG) 20 MG TABLET PO SCH (08:22)
--- NOTE | 2020-06-09 11:22 | NUR ---
MS RN NOTES PATIENT COMPLAINING OF 8/10, LOCATED ON HER ABDOMINAL AND GENERALLY PAIN LOCATED ON LEFT INNER THIGH. PROVIDED COMFORT MEASURES, BUT PATIENT REQUESTING PAIN MEDICATION. ADMINISTERED PRN NORCO PO ORDERED. WILL CONTINUE TO MONITOR PATIENT AND REASSESS PATIENT PAIN LEVEL.
--- NOTE | 2020-06-09 12:57 | NUR ---
MS RN NOTES PATIENT CLEARED BY DR. MAICO NOE FOR DISCHARGE TO HOME. EDUCATED PROVIDED TO PATIENT AND WILL CONTINUE TO MONITOR PATIENT.
[2020-06-09] MEDS ORDERED: HYDROCODONE/APAP 5/325MG TABLET PO ONE (16:00)
--- NOTE | 2020-06-09 16:54 | NUR ---
MS RN NOTES PATIENT COMPLAINING OF 8/10, LOCATED ON HER ON LEFT INNER THIGH. PROVIDED COMFORT MEASURES, BUT PATIENT INSISTING ON PAIN MEDICATION. ADMINISTERED PRN NORCO PO ORDERED. WILL CONTINUE TO MONITOR PATIENT AND REASSESS PATIENT PAIN LEVEL.
[2020-06-09] MEDS: INSULIN REGULAR, HUMAN 100 UNIT/ML 3 ML VIAL SQ PRN (17:21)
--- NOTE | 2020-06-09 18:37 | NUR ---
MS RN NOTES: DISCHARGE PATIENT ALERT AND ORIENTED X 4, ON ROOM AIR WITH NO RESPIRATORY DISTRESS, NO SOB NOTED, AND WITH EVEN NON-LABORED BREATHING. REMOVED ID BANDS. REMOVED IV ACCESS, CATHETER TIP INTACT, AND APPLIED PRESSURE TO SITE. EDUCATION PROVIDED TO PATIENT, AND PROVIDED EXIT CARE PACKET. PATIENT ACCOUNTED FOR BELONGINGS AND LEFT THE UNIT WITH ALL BELONGINGS. PATIENT LEFT THE UNIT IN STABLE CONDITION. PATIENT HAD PRIVATE CAR/UBER AWAITING BY THE MAIN ENTRANCE.
== END 2020-06-09 18:38 | disposition home or self-care (01) | DRG 420 ==
LOC: ER 07:22 → ICU 11:18 → MED 06-05 20:41
DX: E11.10 Type 2 diabetes mellitus with ketoacidosis without coma (principal); E78.5 Hyperlipidemia, unspecified; E66.9 Obesity, unspecified; I48.0 Paroxysmal atrial fibrillation; F17.210 Nicotine dependence, cigarettes, uncomplicated; E87.6 Hypokalemia; E83.52 Hypercalcemia; Z79.4 Long term (current) use of insulin; Z68.38 Body mass index [BMI] 38.0-38.9, adult; N17.0 Acute kidney failure with tubular necrosis; K76.0 Fatty (change of) liver, not elsewhere classified; K85.90 Acute pancreatitis without necrosis or infection, unspecified; Z79.82 Long term (current) use of aspirin; Z88.0 Allergy status to penicillin; Z79.899 Other long term (current) drug therapy; Z79.84 Long term (current) use of oral hypoglycemic drugs; D72.829 Elevated white blood cell count, unspecified; L03.116 Cellulitis of left lower limb; L02.416 Cutaneous abscess of left lower limb; L03.315 Cellulitis of perineum
CPT/HCPCS: 36410; 36415; 36600; 71045-TC; 76882; 80048-TC; 80053-TC; 80061-TC; 80076-TC; 80202-TC; 82010-TC; 82803-TC; 82962-TC; 83690-TC; 83735-TC; 83880; 84100-TC; 84132-TC; 84443-TC; 84484-TC; 84703-TC; 85025-TC; 85610-TC; 85730-TC; 86850-TC; 87070-TC; 87075-TC; 87081-TC; 88305-TC; 93307-TC; A6253; C9113; G0378; J1100; J1650; J1815; J1885; J2250; J2270; J2405; J2543; J2704; J2765; J3010; J3370; J3475; J3480; J3490; J7030; J7042; J7050; J7060

== ENCOUNTER 2020-09-28 11:12 | Inpatient (IN) | payer MEDICAID, OTHER ==
[~2020-09-28] VITALS: Ht 180.3 cm; Wt 139.7 kg
[~2020-09-28 11:12] MED LIST changes: +HYDR-4354 PO; -OXYC-128 PO
--- NOTE | 2020-09-28 11:21 | NUR ---
came in for c/o chest throbbing pain and LUQ pain since last night radiarting to L back area. 08/28 PS. to ER bed 4, hooked to lubrication supervisor, patient on sinus rhythm. NAD noted. changed to hosp gown, warm blanket provided, awaiting MD agrawal
--- NOTE | 2020-09-28 11:30 | NUR ---
Dr torrez at bedside
[2020-09-28] MEDS ORDERED: ONDANSETRON HCL/PF 4 MG/2 ML VIAL ONE (11:53)
[2020-09-28] MEDS ORDERED: MORPHINE SULFATE INJ 4 MG/ML DISP.SYRIN ONE (11:54)
[2020-09-28] MEDS ORDERED: MORPHINE SULFATE INJ 2 MG/ML DISP.SYRIN IV ONE (12:00)
[2020-09-28] MEDS ORDERED: KETOROLAC TROMETHAMINE INJ 30 MG/ML VIAL IV ONE (12:00)
[2020-09-28] MEDS ORDERED: IV NS 0.9% 1,000 ML BAG IV ONE (12:00)
[2020-09-28] MEDS ORDERED: ONDANSETRON HCL/PF 4 MG/2 ML VIAL IVP ONE (12:00)
--- NOTE | 2020-09-28 12:09 | NUR ---
ROUGHENER AT BEDSIDE
[2020-09-28 12:10] LABS: BASOPHILS # (AUTO) 0.1 /CMM (0.0-0.2); BASOPHILS % (AUTO) 0.5 % (0.0-2.0); EOSINOPHILS % (AUTO) 0.2 % (0.0-6.0); HEMATOCRIT 48 % (33-45); HEMOGLOBIN 16.3 g/dL (11.5-14.8); LYMPHOCYTES # (AUTO) 1.9 /CMM (0.8-4.8); LYMPHOCYTES % (AUTO) 14.7 % (20.0-44.0); MEAN CORPUSCULAR HGB CONC 34 g/dl (31.0-36.0); MEAN CORPUSCULAR VOLUME 95 fL (82-100); MONOCYTES # (AUTO) 0.9 /CMM (0.1-1.30); MONOCYTES % (AUTO) 6.9 % (2.0-12.0); NEUTROPHILS % (AUTO) 77.7 % (43.0-81.0); PLATELET COUNT (AUTO) 302 /CMM (150-450); RED BLOOD CELL COUNT(AUTO) 5.08 MIL/uL (4.0-5.2); WHITE BLOOD COUNT (AUTO) 12.9 K/uL (4.3-11.0)
--- NOTE | 2020-09-28 12:12 | NUR ---
PATIENT NOT ABLE TO PROVIDE URINE SAMPLE AT THIS TIME. AWARE
[2020-09-28 12:15] LABS: CALCIUM, SERUM 8.5 mg/dL (8.5-10.1); CREATININE 1.2 mg/dL (0.6-1.3); POTASSIUM 3.7 mmol/L (3.5-5.1)
[2020-09-28 12:22] LABS: ALBUMIN 3.5 g/dL (3.4-5.0); BILIRUBIN,DIRECT 0.4 mg/dL (0.0-0.2); BILIRUBIN,TOTAL 1.2 mg/dL (0.2-1.0); TOTAL PROTEIN, SERUM 7.9 g/dL (6.4-8.2)
[2020-09-28 12:31] LABS: CHOLESTEROL 204 mg/dL (<200); HDL CHOLESTEROL 28 mg/dL (40-60); LDL 30 mg/dL (0-99); TRIGLYCERIDES 1179 mg/dL (30-150)
--- NOTE | 2020-09-28 12:50 | NUR ---
GAVE MOVESHEET TO ADMITTING
[2020-09-28] MEDS ORDERED: PANT20TA17 PO (12:53)
[2020-09-28] MEDS ORDERED: ESCI10TA PO (12:53)
[2020-09-28] MEDS ORDERED: CHOL200059 PO (12:53)
[2020-09-28] MEDS ORDERED: MULT-594 PO (12:53)
[2020-09-28] MEDS ORDERED: INSU100V7 SQ (12:53)
[2020-09-28] MEDS ORDERED: INSU100C SQ (12:53)
[2020-09-28] MEDS ORDERED: ASPI-1420 PO (12:54)
[2020-09-28] MEDS ORDERED: ATOR10TA PO (12:54)
[2020-09-28] MEDS ORDERED: LISI-603 PO (12:56)
[2020-09-28] MEDS ORDERED: METF-440 PO (12:56)
[2020-09-28] MEDS ORDERED: HYDROMORPHONE INJ 2 MG/ML DISP.SYRIN IV ONE (13:00)
[2020-09-28] MEDS ORDERED: HYDROMORPHONE 1 MG/1 ML DISP.SYRIN ONE (13:07)
--- NOTE | 2020-09-28 13:11 | NUR ---
PATIENT STILL NOT ABLE TO GIVE URINE SAMPLE AT THIS TIME. MADE AWARE
--- NOTE | 2020-09-28 13:11 | NUR ---
CALLED [facility] PAGED DR NINA
--- NOTE | 2020-09-28 13:20 | NUR ---
SPOKE TO JD MEZA WY KINSEY, AUTH TO ADMISSION PROVIDED.
--- NOTE | 2020-09-28 13:24 | NUR ---
BED [id number]
[2020-09-28] MEDS ORDERED: ONDANSETRON HCL/PF 4 MG/2 ML VIAL IVP PRN (13:30)
--- NOTE | 2020-09-28 13:37 | NUR ---
REPORT GIVEN TO JEANNINE SANDOVAL OF MS UNIT
--- NOTE | 2020-09-28 13:43 | NUR ---
RAPID COVID TEST DONE AND SENT TO LAB
--- NOTE | 2020-09-28 14:29 | NUR ---
FOLLOWED UP COVID RESULTS WITH MAIN LAB, NO RESULT YET
--- NOTE | 2020-09-28 14:50 | NUR ---
received covid lab result from lab, negative
[2020-09-28] MEDS ORDERED: KETOROLAC TROMETHAMINE 15 MG/ML VIAL ONE (15:15)
--- NOTE | 2020-09-28 15:18 | NUR ---
PATIENT SIGNED WAIVER FORM. LMP 08/26/2020. PATIENT STATES "I'M SURE BECAUSE I HAVEN'T HAD SEXUAL CONTACT"
--- NOTE | 2020-09-28 15:24 | NUR ---
URINE SAMPLE COLLECTED AND SENT TO LAB
[2020-09-28] MEDS ORDERED: DEXTROSE 50%-WATER 50 ML DISP.SYRIN IV PRN (15:30)
[2020-09-28 15:36] LABS: BILIRUBIN,URINE MODERATE (NEGATIVE); BLOOD, URINE Trace-intact Ery/uL (NEGATIVE); COLOR,URINE Dark (YELLOW); LEUKOCYTE ESTERASE ,URINE Negative (NEGATIVE); NITRITE, URINE Negative (NEGATIVE); PH,URINE 5.5 (5.0-8.0); PROTEIN,URINE 100 mg/dl (NEGATIVE); UGLUCOSE Negative (NEGATIVE)
[2020-09-28 15:54] VITALS: BP 118/98
[2020-09-28] MEDS: MORPHINE SULFATE INJ 2 MG/ML DISP.SYRIN IV PRN ×2 (16:26→20:25)
[2020-09-28 16:30] LABS: BACTERIA,URINE Moderate /HPF (None Seen); SQUAMOUS EPITHELIAL CELL,UR Many /HPF (None Seen)
[2020-09-28] MEDS: IV NS 0.9% 1,000 ML IV PRN ×2 (16:32→23:43)
--- NOTE | 2020-09-28 17:00 | NUR ---
MS RN NOTE RECEIVED PATIENT FROM ER WITH DX PANCREATITIS, ALERT ORIENTED , UNDER MS UNIT UNDER CARE DR NINA , VS TAKEN ,BELONGING CHECKED . ON RA, NO SOB NOTED BUT C\O PAIN LOWER ABDOMEN MORPHINE WILL BE GIVEN ORDERED , ON NPO STATUS AT THIS TIME BUT C\O WANTS TO DRINK WATER , CALLED TO DR NINA OK TO HAVE ICE CHIPS , LT AC HL INTACT AND FLUSHED WELL, ON IVF ORDERED, PLAN OF CARE DISCUSSED WITH PATIENT, CALL LIGHT WITHIN REACH , PLAN OF CARE DISCUSSED WITH PATIENT, WILL CONT TO MONITOR
[2020-09-28] MEDS: BLOOD SUGAR DIAGNOSTIC 1 EACH STRIP IN SCH ×2 (17:19→23:57)
[2020-09-28] MEDS: INSULIN REGULAR, HUMAN 100 UNIT/ML 3 ML VIAL SQ PRN ×2 (17:22→23:52)
--- NOTE | 2020-09-28 19:06 | NUR ---
ms rn not all needs attended .assisted to bsc on ivf, will cont to monitor
[2020-09-28 20:00] VITALS: BP 116/97
--- NOTE | 2020-09-28 20:00 | NUR ---
RN NOTE PT RECEIVED IN BED, A/A/O X3, PT IS ON RA SATING 98%. PT HAS UNLABORED BREATHING , SAFETY MEASURES IN PLACE. BED AT LOWEST, LOCKED, SIDE RAILS UP X2, CALL LIGHT IN REACH.
[2020-09-29] MEDS: MORPHINE SULFATE INJ 2 MG/ML DISP.SYRIN IV PRN ×7 (00:57→21:48)
[2020-09-29 04:00] VITALS: BP 141/78
--- NOTE | 2020-09-29 05:00 | NUR ---
RN NOTE PT COMPLAINING ABOUT PAIN THAT EFFECT OF MORPHINE SULFATE DOES NOT LAST. CONTACTED DR ALY AND RECEIVED ORDER FOR MORPHINE SULFATE INJ 2MG Q3H.
[2020-09-29] MEDS: INSULIN REGULAR, HUMAN 100 UNIT/ML 3 ML VIAL SQ PRN ×4 (05:53→23:17)
[2020-09-29] MEDS: IV NS 0.9% 1,000 ML IV PRN ×3 (05:58→23:17)
[2020-09-29 06:02] LABS: BASOPHILS % (AUTO) 0.4 % (0.0-2.0); EOSINOPHILS % (AUTO) 3.2 % (0.0-6.0); HEMATOCRIT 40 % (33-45); HEMOGLOBIN 13.6 g/dL (11.5-14.8); LYMPHOCYTES # (AUTO) 2.5 /CMM (0.8-4.8); LYMPHOCYTES % (AUTO) 28.5 % (20.0-44.0); MEAN CORPUSCULAR HGB CONC 34 g/dl (31.0-36.0); MEAN CORPUSCULAR VOLUME 96 fL (82-100); MONOCYTES # (AUTO) 0.9 /CMM (0.1-1.30); NEUTROPHILS # (AUTO) 5.1 /CMM (1.8-8.9); NEUTROPHILS % (AUTO) 57.9 % (43.0-81.0); PLATELET COUNT (AUTO) 194 /CMM (150-450); RED BLOOD CELL COUNT(AUTO) 4.21 MIL/uL (4.0-5.2); WHITE BLOOD COUNT (AUTO) 8.9 K/uL (4.3-11.0)
[2020-09-29 06:12] LABS: MAGNESIUM 1.6 mg/dL (1.8-2.4); POTASSIUM 3.6 mmol/L (3.5-5.1)
[2020-09-29] MEDS: BLOOD SUGAR DIAGNOSTIC 1 EACH STRIP IN SCH ×4 (06:12→23:15)
[2020-09-29 06:26] LABS: THYROID STIMULATING HORMONE 2.673 uIU/mL (0.358-3.74)
--- NOTE | 2020-09-29 07:25 | NUR ---
RN NOTE PT REMAINED STABLE DURING MY SHIFT. REPORT GIVEN TO INCOMING SHIFT FOR SHARITA.
--- NOTE | 2020-09-29 08:00 | NUR ---
RN NOTE RECEIVED PATIENT FROM ER WITH DX PANCREATITIS, ALERT ORIENTED , UNDER MS UNIT UNDER CARE DR NINA , VS TAKEN ,BELONGING CHECKED . ON RA, NO SOB NOTED BUT C\O PAIN LOWER ABDOMEN MORPHINE WILL BE GIVEN ORDERED , ON NPO STATUS ONLY ICE CHIPS , LT AC HL INTACT AND FLUSHED WELL, ON IVF NS@200 ML/HR ORDERED,SAFETY MEASUREMENTS ARE IMPLEMENTED PER HOSPITAL POLICY . BED IS IN THE LOWEST POSITION AND RAILS ARE UP X2.CALL LIGHT WITHIN REACH ,WILL CONT TO MONITOR
--- NOTE | 2020-09-29 08:30 | NUR ---
RN NOTES PT IS IN PAIN 8/ GONNA GIVE HER MORPHINE PRN
[2020-09-29] MEDS: PANTOPRAZOLE 40 MG VIAL IV SCH (08:38)
[2020-09-29] MEDS: Magnesium 1GM/D5W 100ML PREMIX 100 ML IV SCH ×2 (09:39→10:38)
--- NOTE | 2020-09-29 10:34 | NUR ---
RN NOTES PT IS CONCERN ABOUT HER FEET AND TOE NAILS INFORMED DR NINA
--- NOTE | 2020-09-29 11:48 | NUR ---
RN NOTES PT IS IN PAIN IN THE MID ABD GAVE HER MORPHINE PRN
[2020-09-29 12:00] VITALS: BP 141/78
--- NOTE | 2020-09-29 13:50 | NUR ---
RN NOTES CONSENT IS SIGNED FOR CT OF ABD WITH CONTRAST .PT STATED HAS NO ALLERGIES FOR SHELFISH AND IODINE
--- NOTE | 2020-09-29 13:53 | NUR ---
RN NOTES PT IS STILL IN PAIN MORHONE HELPS A LITTLE. INFORMED DR NINA.
--- NOTE | 2020-09-29 15:00 | NUR ---
RN NOTES TOOK PT URINE SAMPLE FOR TEST RADIOLOGY IS ASKING
--- NOTE | 2020-09-29 15:30 | NUR ---
RN NOTES DR KINGSLEY CONSULT OH PT FEET. SAID PROB FUNGUS NO TREATMENT ORDERED
[2020-09-29] MEDS ORDERED: IV NS 0.9% 250 ML IV ONE (15:35)
[2020-09-29] MEDS ORDERED: IOHEXOL-300 100 ML VIAL IV ONE (15:35)
--- NOTE | 2020-09-29 17:15 | NUR ---
RN NOTES PT RETURNED FROM CT OF ABD
--- NOTE | 2020-09-29 18:27 | NUR ---
RN CLOSING NOTE PATIENT IS RESTING IN BED ALERT ORIENTEDX3 , ON RA, NO SOB NOTED BUT C\O PAIN LOWER ABDOMEN MORPHINE WILL BE GIVEN ORDERED , ON NPO STATUS ONLY ICE CHIPS , LT AC HL INTACT AND FLUSHED WELL, ON IVF NS@200 ML/HR ORDERED,SAFETY MEASUREMENTS ARE IMPLEMENTED PER HOSPITAL POLICY . 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
[2020-09-29 20:00] VITALS: BP 139/86
--- NOTE | 2020-09-29 20:48 | NUR ---
SQL DATA ARCHITECT: RECEIVED REPORT FROM DAY RN TED AT 1915. PT SITTING IN BED, PS 7/10 AFTER RECEIVING PAIN MEDICATION. PT ON NPO, OKAY WITH ICE CHIPS. IV ACCESS PATENT AND FLUSHING WELL, WITH GOOD BLOOD RETURN NOTED, CONNECTED TO NS AT 200ML/HR. PT A/O X4, ON RA, AMBULATORY, INDEPENDENT WITH ADLS. DISCUSSED PLAN OF CARE TO PT, PT AGREE AND UNDERSTAND, DISCUSSED RESULT OF CT ABDOMEN. SAFETY PRECAUTIONS FOR FALL INITIATED, CALL LIGHT IN REACH, WILL CONTINUE MONITORING PT.
--- NOTE | 2020-09-29 21:53 | NUR ---
PRN MORPHINE: PT C/O 06/28 LLQ ABDL PAIN RADIATING TO MIDEPIGASTRIC AREA, REQUESTING FOR MORPHINE. PRN MORPHINE 2MG IVP ADMINISTERED AT THIS TIME. WILL MONITOR AND REASSESS ACCORDINGLY.
--- NOTE | 2020-09-29 23:19 | NUR ---
accu check 138: fingerstick blood sugar check performed and result is 138, 2units of insulin administered per sliding scale.
[2020-09-30] MEDS: MORPHINE SULFATE INJ 2 MG/ML DISP.SYRIN IV PRN ×6 (00:46→16:23)
--- NOTE | 2020-09-30 00:51 | NUR ---
prn morphine; pt c/o 06/28 abld pain (llq rad to mid epigastric area), pt requesting for morphine. prn morphine 2mg ivp administered at this time. will continue to monitor and reassess pt.
--- NOTE | 2020-09-30 03:50 | NUR ---
prn morphine: pt called c/o abdominal pain (llq radiating to mid epigastric area) described as burning sharp stabbing pain, ps 8/10. prn morphine 2mg ivp administered at this time.
[2020-09-30 04:00] VITALS: BP 128/69
[2020-09-30] MEDS: IV NS 0.9% 1,000 ML IV PRN (05:01)
[2020-09-30] MEDS: BLOOD SUGAR DIAGNOSTIC 1 EACH STRIP IN SCH ×3 (05:20→17:21)
--- NOTE | 2020-09-30 05:20 | NUR ---
accu check 124: fingerstick blood sugar check performed and result is 124, no insulin coverage given per sliding scale.
[2020-09-30 06:03] LABS: BASOPHILS % (AUTO) 0.4 % (0.0-2.0); EOSINOPHILS % (AUTO) 5.2 % (0.0-6.0); HEMATOCRIT 36 % (33-45); HEMOGLOBIN 11.9 g/dL (11.5-14.8); MEAN CORPUSCULAR HGB CONC 34 g/dl (31.0-36.0); MEAN CORPUSCULAR VOLUME 96 fL (82-100); MONOCYTES # (AUTO) 0.5 /CMM (0.1-1.30); MONOCYTES % (AUTO) 9.6 % (2.0-12.0); NEUTROPHILS # (AUTO) 2.7 /CMM (1.8-8.9); NEUTROPHILS % (AUTO) 48.8 % (43.0-81.0); PLATELET COUNT (AUTO) 159 /CMM (150-450); RED BLOOD CELL COUNT(AUTO) 3.71 MIL/uL (4.0-5.2); WHITE BLOOD COUNT (AUTO) 5.5 K/uL (4.3-11.0)
[2020-09-30 06:10] LABS: ALBUMIN 2.4 g/dL (3.4-5.0); BILIRUBIN,TOTAL 0.9 mg/dL (0.2-1.0); CALCIUM, SERUM 7.6 mg/dL (8.5-10.1); CREATININE 0.7 mg/dL (0.6-1.3); MAGNESIUM 1.9 mg/dL (1.8-2.4); POTASSIUM 3.1 mmol/L (3.5-5.1); TOTAL PROTEIN, SERUM 5.9 g/dL (6.4-8.2)
--- NOTE | 2020-09-30 06:49 | NUR ---
prn morphine: prn morphine 2mg ivp administered for pt's c/o 8/10 llq pain.
--- NOTE | 2020-09-30 07:00 | NUR ---
PT AWAKE AND ALERT X4. AMBULATES AD DAVI. RESPIRATIONS EVEN UNLABORED AND SKIN WARM FLUSHED. SKIN INTACT. NPO ORDERED EXCEPT ICECHIPS. L AC IV FLUSHED RUNNING NS ORDERED DRESSING DRY INTACT. REPORTS 3/10 PAIN IN LUQ PAIN. MONITORING PAIN AND LAB VALUES THROUGHOUT THE DAY. WILL CONTINUE IVF ORDERED, PAIN MGMT, NPO, ACCUCHECKS Q6H, AND ASSESS FOR CHANGES IN CONDITION AND REPORT NEEDED. ALL HOSPITAL POLICY SAFETY PRECAUTIONS IMPLEMENTED.
--- NOTE | 2020-09-30 07:00 | NUR ---
end of shift report: pt remains on ra, iv access remains patent and flushing well, infusing with ns at 200 ml/hr. no s/s of iv infiltration noted. Pancreatitis, Lipase upon admission is 1661 which drop to 1033 yesterday 09/29. prn morphine administered for pt's c/o 7-06/28 llq radiating to midepigastric area which pt's described to be as stabbing, sharp pain. Accdg to pt her pain lessened to a score of 5/10 after receiving pain medicine. no episode of vomiting noted throughout the shift, pt remains afebrile. independent/brp. vs remains stable, needs attended. PLAN OF CARE: Continue iv hydration, NPO, Pain management, pending result of am labs. Safety precautions for fall remains engaged, call light within reach, will endorse to day rn for continuity of care.
[2020-09-30 08:00] VITALS: BP 116/73
[2020-09-30] MEDS: PANTOPRAZOLE 40 MG VIAL IV SCH (08:31)
--- NOTE | 2020-09-30 08:36 | NUR ---
potassium 3.1 was notified at this time
[2020-09-30] MEDS: POTASSIUM CL. PREMIX PERIPHER. 50 ML IV SCH ×4 (10:25→16:03)
[2020-09-30] MEDS ORDERED: HYDR-4384 PO (11:57)
[2020-09-30] MEDS ORDERED: POTASSIUM CHLORIDE 20 MEQ TAB.PRT.SR PO ONE (12:00)
[2020-09-30] MEDS: INSULIN REGULAR, HUMAN 100 UNIT/ML 3 ML VIAL SQ PRN ×2 (12:53→17:20)
[2020-09-30 16:00] VITALS: BP 138/80
--- NOTE | 2020-09-30 19:20 | NUR ---
PT READY FOR DC. AWAITING UBER. ALL BELONGINGS WITH PATIENT. IV REMOVED NO SIGNS OF BLEEDING. DC PAPERS AND TEACHING SIGNED AND VERBALIZED UNDERSTANDING. FAMILY AWARE. PT STABLE. GAIT STABLE. VS STABLE.
--- NOTE | 2020-09-30 19:40 | NUR ---
PT DC VIA UBER. 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 ALL BELONGINGS WITH PATIENT. IV REMOVED NO SIGNS OF BLEEDING. DC PAPERS AND TEACHING SIGNED AND VERBALIZED UNDERSTANDING. FAMILY AWARE. PT STABLE. GAIT STABLE. VS STABLE.
== END 2020-09-30 19:30 | disposition home or self-care (01) | DRG 282 ==
LOC: ER 11:27 → TELE1 13:45 → MEDSG1 16:01
DX: K85.90 Acute pancreatitis without necrosis or infection, unspecified (principal); E11.65 Type 2 diabetes mellitus with hyperglycemia; I48.0 Paroxysmal atrial fibrillation; Z68.41 Body mass index [BMI] 40.0-44.9, adult; K76.0 Fatty (change of) liver, not elsewhere classified; Z79.4 Long term (current) use of insulin; Z88.0 Allergy status to penicillin; Z79.82 Long term (current) use of aspirin; Z79.899 Other long term (current) drug therapy; F17.200 Nicotine dependence, unspecified, uncomplicated; E66.01 Morbid (severe) obesity due to excess calories; E78.5 Hyperlipidemia, unspecified; E78.1 Pure hyperglyceridemia
CPT/HCPCS: 36415; 71045-TC; 80048-TC; 80053-TC; 80061-TC; 80076-TC; 81001; 82962-TC; 83690-TC; 83735-TC; 84100-TC; 84443-TC; 84703-TC; 85025-TC; 87081-TC; 87086-TC; C9113; G0378; J1170; J1815; J1885; J2270; J2405; J3475; J3480; J7030; J7050; Q9967

== ENCOUNTER 2020-10-08 15:50 | Emergency (ER) | payer OTHER ==
[~2020-10-08] VITALS: Ht 180.3 cm; Wt 139.3 kg
[~2020-10-08 15:50] MED LIST changes: +ATOR10TA PO; -ATOR20TA PO; -BLOO1EAC70 MC; +CHOL200059 PO; +ESCI10TA PO; -HYDR-4354 PO; +HYDR-4384 PO; +INSU100C SQ; -INSU100C10 SQ; +METF-440 PO; +MULT-594 PO; +PANT20TA17 PO; -[UNRECOGNIZED DRUG - CODE] MC
[2020-10-08] MEDS ORDERED: ONDANSETRON HCL/PF 4 MG/2 ML VIAL ONE (16:23)
--- NOTE | 2020-10-08 16:26 | NUR ---
PICKED UP BY KIRK ROBBINS VIA [facility] FOR CT SCAN
[2020-10-08 16:30] LABS: BASOPHILS # (AUTO) 0.1 /CMM (0.0-0.2); BASOPHILS % (AUTO) 0.8 % (0.0-2.0); EOSINOPHILS % (AUTO) 0.5 % (0.0-6.0); HEMATOCRIT 44 % (33-45); HEMOGLOBIN 14.7 g/dL (11.5-14.8); LYMPHOCYTES # (AUTO) 2.8 /CMM (0.8-4.8); MEAN CORPUSCULAR HGB CONC 34 g/dl (31.0-36.0); MEAN CORPUSCULAR VOLUME 96 fL (82-100); MONOCYTES # (AUTO) 0.6 /CMM (0.1-1.30); MONOCYTES % (AUTO) 6.8 % (2.0-12.0); NEUTROPHILS # (AUTO) 5.8 /CMM (1.8-8.9); NEUTROPHILS % (AUTO) 61.9 % (43.0-81.0); PLATELET COUNT (AUTO) 420 /CMM (150-450); RED BLOOD CELL COUNT(AUTO) 4.55 MIL/uL (4.0-5.2); WHITE BLOOD COUNT (AUTO) 9.3 K/uL (4.3-11.0)
[2020-10-08] MEDS ORDERED: IV NS 0.9% 1,000 ML BAG IV ONE ×2 (16:30)
[2020-10-08] MEDS ORDERED: ONDANSETRON 4 MG TAB.RAPDIS PO ONE (16:30)
--- NOTE | 2020-10-08 16:37 | NUR ---
PATIENT BACK TO ROOM FROM CT SCAN
[2020-10-08 17:07] LABS: ALBUMIN 3.4 g/dL (3.4-5.0); BILIRUBIN,DIRECT 0.1 mg/dL (0.0-0.2); BILIRUBIN,TOTAL 0.4 mg/dL (0.2-1.0); CALCIUM, SERUM 9.3 mg/dL (8.5-10.1); CREATININE 1.5 mg/dL (0.6-1.3); TOTAL PROTEIN, SERUM 7.3 g/dL (6.4-8.2)
[2020-10-08] MEDS ORDERED: HYDROMORPHONE 1 MG/1 ML DISP.SYRIN ONE (17:22)
[2020-10-08] MEDS ORDERED: HYDROMORPHONE 1 MG/1 ML DISP.SYRIN IV ONE (17:30)
--- NOTE | 2020-10-08 18:28 | NUR ---
IV removed. Catheter intact and site benign. Pressure and 4x4 applied to site. No bleeding noted.Patient discharged to home in stable condition. Written and verbal after care instructions given. Patient verbalizes understanding of instruction.
[2020-10-08 18:37] VITALS: BP 114/52
== END 2020-10-08 18:38 | disposition home or self-care (01) ==
LOC: ER 15:53
DX: S09.8XXA Other specified injuries of head, initial encounter (principal); R55 Syncope and collapse; N28.9 Disorder of kidney and ureter, unspecified; E66.01 Morbid (severe) obesity due to excess calories; F17.200 Nicotine dependence, unspecified, uncomplicated; I10 Essential (primary) hypertension; I48.91 Unspecified atrial fibrillation; E11.9 Type 2 diabetes mellitus without complications; Z68.41 Body mass index [BMI] 40.0-44.9, adult; Z88.0 Allergy status to penicillin; Z79.899 Other long term (current) drug therapy; Z79.84 Long term (current) use of oral hypoglycemic drugs; Z79.82 Long term (current) use of aspirin; W18.39XA Other fall on same level, initial encounter; Y93.89 Activity, other specified; Y92.89 Other specified places as the place of occurrence of the external cause; Y99.8 Other external cause status
CPT/HCPCS: 36415; 70450; 71045; 80048; 80076; 83690; 85025; 85730; 93005; 96361; 96374; 99285; 99406; J1170; J2405; J7030